=== PATIENT | male | born 1965 | race Caucasian/White ===

== ENCOUNTER 2017-01-23 18:48 | Emergency (ER) | payer MEDICAID ==
[~2017-01-23] VITALS: Ht 172.7 cm; Wt 86.4 kg
[~2017-01-23 18:48] MED LIST: ASPI-1093 PO; ATOR40TA28 PO; LOSA100T29 PO; METF500T4 PO; RISP1 PO; RISP2 PO; THIA100 PO; TRAZ-144 PO
[2017-01-23 19:00] VITALS: BP 174/108
[2017-01-23 19:06] LABS: GLUCOSE,POINT OF CARE 211 MG/DL (70-110)
[2017-01-23 19:27] LABS: ANION GAP 11 mmol/L (8-16); CALCIUM, TOTAL 9.3 mg/dL (8.8-10.5); CARBON DIOXIDE 28 mmol/L (22-29); CHLORIDE 98 mmol/L (98-107); CREATININE 0.92 mg/dL (0.60-1.30); GLOMERULAR FILTR. RATE CALC > 60 mL/min (>60); POTASSIUM 3.7 mmol/L (3.5-5.1); SODIUM SERUM 137 mmol/L (136-145); UREA NITROGEN, BLOOD 15 mg/dL (7-18)
[2017-01-23 19:31] LABS: BASOPHILS % (AUTO) 0.4 % (0.0-2.0); EOSINOPHILS % (AUTO) 0.4 % (1.0-6.0); HEMATOCRIT 46.5 % (41-53); HEMOGLOBIN 15.5 g/dL (13.5-17.5); LYMPHOCYTES # (AUTO) 2.8 K/uL (1.0-4.8); LYMPHOCYTES % (AUTO) 28.5 % (22.0-44.0); MEAN CORPUSCULAR HEMOGLOBIN 31.9 pg (26.0-34.0); MEAN CORPUSCULAR HGB CONC 33.3 G/dL (31.0-37.0); MEAN CORPUSCULAR VOLUME 96 fL (80-100); MONOCYTES # (AUTO) 0.8 K/uL (0.1-1.0); MONOCYTES % (AUTO) 7.7 % (2.0-9.0); NEUTROPHILS # (AUTO) 6.3 K/uL (1.8-7.7); PLATELET COUNT (AUTO) 292 K/uL (150-450); RED BLOOD CELL COUNT(AUTO) 4.86 MIL/uL (4.50-5.90); RED CELL DISTRIBUTION WIDTH 14.6 % (11.5-14.5)
[2017-01-23 19:33] LABS: ALANINE AMINOTRANSFERASE 32 U/L (12-78); ALBUMIN 3.8 g/dL (3.4-5.0); ASPARTATE AMINOTRANSFERASE 37 U/L (15-37); BILIRUBIN,TOTAL 0.5 mg/dL (0.1-1.0); TOTAL PROTEIN, SERUM 8.3 g/dL (6.4-8.2)
== END 2017-01-23 20:56 | disposition left against medical advice (07) ==
LOC: EMS 18:50
DX: F41.9 Anxiety disorder, unspecified (principal); F32.9 Major depressive disorder, single episode, unspecified; F20.9 Schizophrenia, unspecified; I10 Essential (primary) hypertension; F17.200 Nicotine dependence, unspecified, uncomplicated; Z53.21 Procedure and treatment not carried out due to patient leaving prior to being seen by health care provider
CPT/HCPCS: 36415; 80053; 80307; 82962; 85025; 93005; G0480

== ENCOUNTER 2017-12-02 14:31 | Emergency (ER) | payer MEDICAID, OTHER ==
[~2017-12-02] VITALS: Ht 177.8 cm; Wt 95.4 kg
[~2017-12-02 14:31] MED LIST changes: -ASPI-1093 PO; +ASPI-1182 PO
[2017-12-02] MEDS ORDERED: MAGNESIUM SULFATE 2 GM, MVI, ADULT NO.1 WITH VIT K 10 ML, THIAMINE HCL 100 MG, FOLIC AC... IV ONE ×5 (15:00)
[2017-12-02] MEDS ORDERED: ONDANSETRON HCL 4 MG/2 ML VIAL IVP ONE (15:00)
[2017-12-02] MEDS ORDERED: BENZONATATE 100 MG CAPSULE PO ONE (15:15)
[2017-12-02 15:26] LABS: BASOPHILS % (AUTO) 0.3 % (0.0-2.0); EOSINOPHILS % (AUTO) 0.4 % (1.0-6.0); HEMATOCRIT 44.1 % (41-53); HEMOGLOBIN 15.2 g/dL (13.5-17.5); LYMPHOCYTES # (AUTO) 1.9 K/uL (1.0-4.8); LYMPHOCYTES % (AUTO) 21.7 % (22.0-44.0); MEAN CORPUSCULAR HEMOGLOBIN 32.4 pg (26.0-34.0); MEAN CORPUSCULAR HGB CONC 34.5 G/dL (31.0-37.0); MEAN CORPUSCULAR VOLUME 94 fL (80-100); MONOCYTES # (AUTO) 0.7 K/uL (0.1-1.0); MONOCYTES % (AUTO) 7.6 % (2.0-9.0); NEUTROPHILS # (AUTO) 6.3 K/uL (1.8-7.7); PLATELET COUNT (AUTO) 221 K/uL (150-450); RED BLOOD CELL COUNT(AUTO) 4.69 MIL/uL (4.50-5.90); RED CELL DISTRIBUTION WIDTH 13.3 % (11.5-14.5)
[2017-12-02 16:06] LABS: ALANINE AMINOTRANSFERASE 53 U/L (12-78); ALBUMIN 3.5 g/dL (3.4-5.0); ALKALINE PHOSPHATASE 50 U/L (46-116); ANION GAP 11 mmol/L (8-16); ASPARTATE AMINOTRANSFERASE 34 U/L (15-37); BILIRUBIN,TOTAL 0.4 mg/dL (0.1-1.0); CALCIUM, TOTAL 8.5 mg/dL (8.8-10.5); CARBON DIOXIDE 27 mmol/L (22-29); CHLORIDE 92 mmol/L (98-107); GLOMERULAR FILTR. RATE CALC > 60 mL/min (>60); GLUCOSE,RANDOM 364 mg/dL (70-110); SODIUM SERUM 130 mmol/L (136-145); TOTAL PROTEIN, SERUM 7.2 g/dL (6.4-8.2); UREA NITROGEN, BLOOD 18 mg/dL (7-18)
[2017-12-02 16:40] LABS: POTASSIUM 2.9 mmol/L (3.5-5.1)
[2017-12-02] MEDS ORDERED: POTASSIUM CHLORIDE 20 MEQ ER TABLET PO ONE (16:45)
[2017-12-02 18:43] VITALS: BP 135/85
== END 2017-12-02 18:52 | disposition home or self-care (01) ==
LOC: EMS 14:34
DX: F10.239 Alcohol dependence with withdrawal, unspecified (principal); I10 Essential (primary) hypertension; E23.2 Diabetes insipidus; F20.9 Schizophrenia, unspecified; F32.9 Major depressive disorder, single episode, unspecified; Z79.82 Long term (current) use of aspirin; Y90.8 Blood alcohol level of 240 mg/100 ml or more
CPT/HCPCS: 36415; 80053; 85025; 96365; 96366; 96375; 99285; G0480; J2405; J3411; J3475; J3490 ×2; J7030

== ENCOUNTER 2025-01-19 03:13 | Inpatient (IN) | payer OTHER ==
[2025-01-19] VITALS (11 sets, daily range): BP systolic 96–115; BP diastolic 67–76; PULSE 60–80; RESP 24; TEMP 94.5–98.3; O2SAT 97–100
[~2025-01-19] VITALS: Ht 182.9 cm; Wt 95.6 kg
[~2025-01-19 03:13] MED LIST changes: -ASPI-1182 PO; +ASPI-1444 PO; -LOSA100T29 PO; +LOSA100T59 PO; +METF-1211 PO; -METF500T4 PO; -RISP1 PO; +RISP1TAB48 PO; -RISP2 PO; +RISP2TAB45 PO; -THIA100 PO; +THIAMINE HCL100 MG PO; -TRAZ-144 PO; +TRAZ-252 PO
[2025-01-19] MEDS ORDERED: IOHEXOL 350 MG/ML 100 ML VIAL ONE (03:46)
[2025-01-19] MEDS: PROPOFOL 1000 MG/ISO-OSM 100 ML IV PRN (04:44)
[2025-01-19 04:47] LABS: APPEARANCE,URINE CLEAR (CLEAR); BILIRUBIN,URINE NEGATIVE (NEGATIVE); COLOR,URINE YELLOW (YELLOW); GLUCOSE, URINE (UA) TRACE mg/dL (NEGATIVE); KETONES,URINE NEGATIVE (NEGATIVE); LEUKOCYTE ESTERASE ,URINE NEGATIVE (NEGATIVE); NITRATE,URINE NEGATIVE (NEGATIVE); OCCULT BLOOD,URINE TRACE (NEGATIVE); PROTEIN,URINE 300-600,SEE CONFIRM mg/dL (NEGATIVE); SPECIFIC GRAVITIY, URINE 1.017 (1.003-1.030); UROBILINOGEN,URINE <=1.0 mg/dL (<=1.0)
[2025-01-19 04:56] LABS: ABG BASE EXCESS -4.5 mmol/L (-2.0-3.0); ABG CARBOXYHEMOGLOBIN 1.1 % (0.5-1.5); ABG HCO3 21.4 mmol/L (21.0-28.0); ABG METHEMOGLOBIN 0.1 % (0.0-1.5); ABG OXYGEN CONTENT 21.1 mL/dL (15.0-23.0); ABG OXYGEN SATURATION 99.2 % (94.0-98.0); ABG PCO2 36 mmHg (32.0-48.0); ABG TOTAL HEMOGLOBIN 15.1 G/dL (13.5-17.5); PO2, ARTERIAL BG 160.6 mmHg (83.0-108.0); SOURCE, BLOOD GAS ARTERIAL; TEMPERATURE, FAHRENHEIT, BG 98.6 FAHREN (96.0-98.6)
[2025-01-19 04:57] LABS: BACTERIA,URINE None Seen /HPF (None Seen); RBC,URINE 0-2 /HPF (0-2); SQUAMOUS EPITHELIAL CELL,UR Few /LPF (None Seen); SULFOSALICYLIC ACID,URINE 4+ (Negative); WBC,URINE None Seen /HPF (0-5)
[2025-01-19 04:57] LABS: SITE, BLOOD GAS RT RADIAL
[2025-01-19 04:58] LABS: ALLEN TEST, BLOOD GAS Positive; O2 DEVICE,BLOOD GAS VENT (ROOM AIR); PEEP,BG 5 cm H2O; VT, ABG 430 ml
[2025-01-19] MEDS: PIPERACILLIN/TAZO 3.375 GM/D5W 50 ML IV ONE (05:10)
[2025-01-19 05:15] LABS: ALCOHOL, URINE DRUG SCREEN NEGATIVE (NEGATIVE); AMPHET/METH SCREEN,URINE NEGATIVE (NEGATIVE); BARBITURATE SCREEN, URINE NEGATIVE (NEGATIVE); BENZODIAZEPINES SCREEN,URINE NEGATIVE (NEGATIVE); CANNABINOID SCREEN,URINE NEGATIVE (NEGATIVE); COCAINE SCREEN,URINE NEGATIVE (NEGATIVE); METHADONE SCREEN, URINE NEGATIVE (NEGATIVE); OPIATE SCREEN,URINE NEGATIVE (NEGATIVE); PHENCYCLIDINE SCREEN,URINE NEGATIVE (NEGATIVE)
[2025-01-19] MEDS: KETAMINE HCL 500 MG in DEXTROSE 5%-WATER 490 ML IV PRN (05:25)
[2025-01-19] MEDS: VANCOMYCIN 1.5 GM/WATER(PEG) 300 ML IV ONE (05:25)
[2025-01-19 05:55] LABS: ANION GAP 8 mmol/L (8-16); BASOPHILS % (AUTO) 0.2 % (0.0-2.0); CALCIUM, TOTAL 8.5 mg/dL (8.8-10.5); CARBON DIOXIDE 22 mmol/L (22-29); CHLORIDE 107 mmol/L (98-107); CREATININE 1.51 mg/dL (0.60-1.30); EOSINOPHILS % (AUTO) 0 % (1.0-6.0); GLOMERULAR FILTR. RATE CALC 48 mL/min (>60); GLUCOSE,RANDOM 168 mg/dL (70-110); HEMATOCRIT 45.2 % (41-53); HEMOGLOBIN 14.1 g/dL (13.5-17.5); LYMPHOCYTES # (AUTO) 0.8 K/uL (1.0-4.8); LYMPHOCYTES % (AUTO) 6.6 % (22.0-44.0); MEAN CORPUSCULAR HEMOGLOBIN 28.5 pg (26.0-34.0); MEAN CORPUSCULAR HGB CONC 31.2 G/dL (31.0-37.0); MEAN CORPUSCULAR VOLUME 92 fL (80-100); MONOCYTES # (AUTO) 0.5 K/uL (0.1-1.0); MONOCYTES % (AUTO) 4.3 % (2.0-9.0); NEUTROPHILS # (AUTO) 11.3 K/uL (1.8-7.7); PLATELET COUNT (AUTO) 173 K/uL (150-450); POTASSIUM 4.7 mmol/L (3.5-5.1); RED BLOOD CELL COUNT(AUTO) 4.94 MIL/uL (4.50-5.90); RED CELL DISTRIBUTION WIDTH 23.8 % (11.5-14.5); SODIUM SERUM 137 mmol/L (136-145); UREA NITROGEN, BLOOD 33 mg/dL (7-18); WHITE BLOOD COUNT (AUTO) 12.7 K/uL (4.5-11.0)
[2025-01-19 05:57] LABS: NEUTROPHILS % (AUTO) 88.9 % (40.0-70.0)
[2025-01-19] MEDS ORDERED: ONDANSETRON HCL 4 MG/2 ML VIAL IVP PRN (06:00)
[2025-01-19 06:02] LABS: ALANINE AMINOTRANSFERASE 30 U/L (12-78); ALBUMIN 2.1 g/dL (3.4-5.0); ALKALINE PHOSPHATASE 100 U/L (46-116); ASPARTATE AMINOTRANSFERASE 34 U/L (15-37); BILIRUBIN,TOTAL 1.2 mg/dL (0.1-1.0); TOTAL PROTEIN, SERUM 6.6 g/dL (6.4-8.2)
[2025-01-19 06:04] LABS: TROPONIN I-HIGH SENSITIVITY 197 ng/L (<76)
[2025-01-19 06:26] LABS: RBC MORPHOLOGY COMMENT ABNORMAL RBC MORPH
[2025-01-19 07:01] LABS: PROTHROMBIN TIME 13.5 SEC (9.4-11.6)
[2025-01-19] MEDS: HEPARIN SODIUM,PORCINE 5,000 UNITS/ML VIAL SQ SCH (07:32)
[2025-01-19] MEDS ORDERED: DEXTROSE 50%-WATER 25 GM/50 ML SYRINGE IVP PRN (08:30)
[2025-01-19] MEDS: PANTOPRAZOLE SODIUM 40 MG/VIAL IVP SCH (08:40)
[2025-01-19 09:47] LABS: TROPONIN I-HIGH SENSITIVITY 279 ng/L (<76)
[2025-01-19 12:14] LABS: BILIRUBIN,URINE NEGATIVE (NEGATIVE); COLOR,URINE LIGHT YELLOW (YELLOW); GLUCOSE, URINE (UA) NEGATIVE (NEGATIVE); KETONES,URINE NEGATIVE (NEGATIVE); LEUKOCYTE ESTERASE ,URINE MODERATE (NEGATIVE); NITRATE,URINE NEGATIVE (NEGATIVE); OCCULT BLOOD,URINE MODERATE (NEGATIVE); PH,URINE 5.5 (5.0-8.0); PROTEIN,URINE 100-200,SEE CONFIRM mg/dL (NEGATIVE); SPECIFIC GRAVITIY, URINE 1.033 (1.003-1.030); UROBILINOGEN,URINE <=1.0 mg/dL (<=1.0)
[2025-01-19 12:15] LABS: APPEARANCE,URINE HAZY (CLEAR)
[2025-01-19 12:18] LABS: BACTERIA,URINE Moderate /HPF (None Seen)
[2025-01-19] MEDS: PIPERACILLIN/TAZO 3.375 GM/D5W 50 ML IV SCH (13:04)
[2025-01-19 15:49] LABS: TROPONIN I-HIGH SENSITIVITY 274 ng/L (<76)
[2025-01-19] MEDS: VANCOMYCIN HCL 1 GM/D5% WATER 200 ML IV SCH (20:59)
[2025-01-19] MEDS: CHLORHEXIDINE GLUCONATE 2% TOWELETTE [2'S/6'S] TP SCH (21:02)
[2025-01-19 21:03] LABS: TROPONIN I-HIGH SENSITIVITY 288 ng/L (<76)
[2025-01-19] MEDS ORDERED: FentaNYL CIT 1000MCG/0.9% NACL 100 ML IV PRN (21:15)
[2025-01-20] VITALS (15 sets, daily range): BP systolic 123–145; BP diastolic 70–103; PULSE 63–88; RESP 24; TEMP 98.1–99.1; O2SAT 95–100
[2025-01-20 06:19] LABS: CALCIUM, TOTAL 8.6 mg/dL (8.8-10.5); CREATININE 1.52 mg/dL (0.60-1.30); POTASSIUM 4.2 mmol/L (3.5-5.1)
[2025-01-20 07:25] LABS: BASOPHILS % (AUTO) 0.3 % (0.0-2.0); EOSINOPHILS % (AUTO) 0.1 % (1.0-6.0); LYMPHOCYTES # (AUTO) 1.5 K/uL (1.0-4.8); LYMPHOCYTES % (AUTO) 11.5 % (22.0-44.0); MEAN CORPUSCULAR HEMOGLOBIN 28.2 pg (26.0-34.0); MEAN CORPUSCULAR HGB CONC 31.9 G/dL (31.0-37.0); MEAN CORPUSCULAR VOLUME 88 fL (80-100); MONOCYTES # (AUTO) 1.2 K/uL (0.1-1.0); MONOCYTES % (AUTO) 9.7 % (2.0-9.0); NEUTROPHILS # (AUTO) 9.9 K/uL (1.8-7.7); NEUTROPHILS % (AUTO) 78.4 % (40.0-70.0); PLATELET COUNT (AUTO) 192 K/uL (150-450); RED BLOOD CELL COUNT(AUTO) 5.66 MIL/uL (4.50-5.90); RED CELL DISTRIBUTION WIDTH 23.9 % (11.5-14.5); WHITE BLOOD COUNT (AUTO) 12.7 K/uL (4.5-11.0)
[2025-01-20] MEDS: PROPOFOL 1000 MG/ISO-OSM 100 ML IV PRN (07:49)
[2025-01-20 08:07] LABS: RBC MORPHOLOGY COMMENT ABNORMAL RBC MORPH
[2025-01-20] MEDS ORDERED: DEXMEDETOMIDINE 400 MCG/NS 100 ML IV PRN (15:15)
[2025-01-21] VITALS (13 sets, daily range): BP systolic 114–138; BP diastolic 61–94; PULSE 70–103; RESP 24–27; TEMP 97.6–98.8; O2SAT 96–99
[2025-01-21 07:25] LABS: GLUCOMETER DEV NAME(LOC) ICU.S6; GLUCOSE,POINT OF CARE 149 MG/DL (70-110)
[2025-01-21 13:58] LABS: CREATININE 1.52 mg/dL (0.60-1.30); POTASSIUM 4.8 mmol/L (3.5-5.1)
[2025-01-21 16:45] LABS: HEMATOCRIT 53.2 % (41-53); HEMOGLOBIN 16.7 g/dL (13.5-17.5); MEAN CORPUSCULAR HEMOGLOBIN 27.4 pg (26.0-34.0); MEAN CORPUSCULAR HGB CONC 31.3 G/dL (31.0-37.0); MEAN CORPUSCULAR VOLUME 88 fL (80-100); PLATELET COUNT (AUTO) 235 K/uL (150-450); RED BLOOD CELL COUNT(AUTO) 6.07 MIL/uL (4.50-5.90); RED CELL DISTRIBUTION WIDTH 24.1 % (11.5-14.5)
[2025-01-21 16:47] LABS: ABG BASE EXCESS -2.5 mmol/L (-2.0-3.0); ABG CARBOXYHEMOGLOBIN 1.4 % (0.5-1.5); ABG HCO3 23.5 mmol/L (21.0-28.0); ABG METHEMOGLOBIN 0.2 % (0.0-1.5); ABG OXYGEN CONTENT 23.2 mL/dL (15.0-23.0); ABG OXYGEN SATURATION 96.8 % (94.0-98.0); ABG OXYHEMOGLOBIN 95.3 % (94.0-98.0); ABG PCO2 31 mmHg (32.0-48.0); ABG PH 7.455 (7.350-7.450); ABG TOTAL HEMOGLOBIN 17.3 G/dL (13.5-17.5); PO2, ARTERIAL BG 90.3 mmHg (83.0-108.0); SOURCE, BLOOD GAS ARTERIAL; TEMPERATURE, FAHRENHEIT, BG 98.6 FAHREN (96.0-98.6)
[2025-01-21 16:49] LABS: ABG A-A DIFF O2 86.9 mmHg (10-20.0); ALLEN TEST, BLOOD GAS Positive; SITE, BLOOD GAS RT RADIAL
[2025-01-21 16:50] LABS: O2 DEVICE,BLOOD GAS VENT (ROOM AIR); PEEP,BG 5 cm H2O; VT, ABG 430 ml
[2025-01-21 17:23] LABS: BAND NEUTROPHILS % (MANUAL) 3 % (0-5); LYMPHOCYTES % (MANUAL) 12 % (22-44); MONOCYTES % (MANUAL) 7 % (2-9); RBC MORPHOLOGY COMMENT ABNORMAL RBC MORPH; SEGMENTED NEUTROPHILS % 78 % (40-70); TOTAL CELLS COUNTED 100
[2025-01-21] MEDS: ETHYL ALCOHOL 62% ANTISEPTIC NASAL SANITIZER 0.6 ML AMPUL NASAL SCH (20:19)
[2025-01-22] VITALS (15 sets, daily range): BP systolic 118–132; BP diastolic 63–88; PULSE 70–100; RESP 24–29; TEMP 97.9–98.5; O2SAT 95–100
[2025-01-22] MEDS ORDERED: SODIUM CHLORIDE 0.9% 250 ML IV ONE (05:22)
[2025-01-22 06:26] LABS: BASOPHILS % (AUTO) 0.7 % (0.0-2.0); EOSINOPHILS % (AUTO) 0.6 % (1.0-6.0); HEMATOCRIT 51.2 % (41-53); HEMOGLOBIN 16.9 g/dL (13.5-17.5); LYMPHOCYTES # (AUTO) 1.3 K/uL (1.0-4.8); LYMPHOCYTES % (AUTO) 12.8 % (22.0-44.0); MEAN CORPUSCULAR HEMOGLOBIN 28.4 pg (26.0-34.0); MEAN CORPUSCULAR HGB CONC 32.9 G/dL (31.0-37.0); MEAN CORPUSCULAR VOLUME 86 fL (80-100); MONOCYTES % (AUTO) 9.7 % (2.0-9.0); NEUTROPHILS # (AUTO) 7.8 K/uL (1.8-7.7); NEUTROPHILS % (AUTO) 76.2 % (40.0-70.0); PLATELET COUNT (AUTO) 210 K/uL (150-450); RED BLOOD CELL COUNT(AUTO) 5.93 MIL/uL (4.50-5.90); RED CELL DISTRIBUTION WIDTH 24.2 % (11.5-14.5); WHITE BLOOD COUNT (AUTO) 10.3 K/uL (4.5-11.0)
[2025-01-22 06:48] LABS: CALCIUM, TOTAL 8.1 mg/dL (8.8-10.5); CREATININE 1.34 mg/dL (0.60-1.30); POTASSIUM 3.9 mmol/L (3.5-5.1); VANCOMYCIN,RANDOM 30.7 mcg/mL (25.0-50.0)
[2025-01-22] MEDS ORDERED: LIDOCAINE/PF 1% 5 ML VIAL ONE (09:49)
[2025-01-22 09:50] LABS: RBC MORPHOLOGY COMMENT ABNORMAL RBC MORPH
[2025-01-22 12:55] LABS: APPEARANCE,SPUN,BODY FLUID CLEAR (CLEAR); APPEARANCE,UNSPUN,BODY FLUID CLOUDY (CLEAR); BASOPHILS,BODY FLUID 0 %; COLOR,BODY FLUID YELLOW (LT YELLOW); EOSINOPHILS,BF (ANAL) 0 %; LYMPHOCYTES,BODY FLUID 92 %; MONOCYTES,BODY FLUID 0 %; NEUTROPHILS,BODY FLUID 8 %; SPECIMENTYPE,BODY FLUID PLEURAL; TOTAL VOLUME,BODY FLUID 70 mL; WBC, BODY FLUID 35 /cu. mm.
[2025-01-23] VITALS (13 sets, daily range): BP systolic 95–145; BP diastolic 48–99; PULSE 65–91; RESP 24–27; TEMP 97.5–97.9; O2SAT 95–100
[2025-01-23 06:52] LABS: BASOPHILS % (AUTO) 1.2 % (0.0-2.0); EOSINOPHILS % (AUTO) 0.7 % (1.0-6.0); HEMATOCRIT 51.7 % (41-53); HEMOGLOBIN 16.3 g/dL (13.5-17.5); LYMPHOCYTES % (AUTO) 13.8 % (22.0-44.0); MEAN CORPUSCULAR HEMOGLOBIN 27.8 pg (26.0-34.0); MEAN CORPUSCULAR HGB CONC 31.5 G/dL (31.0-37.0); MEAN CORPUSCULAR VOLUME 88 fL (80-100); MONOCYTES # (AUTO) 1.9 K/uL (0.1-1.0); MONOCYTES % (AUTO) 12.8 % (2.0-9.0); NEUTROPHILS # (AUTO) 10.4 K/uL (1.8-7.7); NEUTROPHILS % (AUTO) 71.5 % (40.0-70.0); PLATELET COUNT (AUTO) 254 K/uL (150-450); RED BLOOD CELL COUNT(AUTO) 5.87 MIL/uL (4.50-5.90); RED CELL DISTRIBUTION WIDTH 24.4 % (11.5-14.5); WHITE BLOOD COUNT (AUTO) 14.5 K/uL (4.5-11.0)
[2025-01-23 06:57] LABS: CALCIUM, TOTAL 8.1 mg/dL (8.8-10.5); CREATININE 1.35 mg/dL (0.60-1.30); MAGNESIUM 1.6 mg/dL (1.80-2.40); POTASSIUM 5.4 mmol/L (3.5-5.1)
[2025-01-23] MEDS ORDERED: SODIUM CHLORIDE 0.9% 250 ML IV ONE (06:59)
[2025-01-23] MEDS: VANCOMYCIN HCL 1 GM/D5% WATER 200 ML IV SCH (08:13)
[2025-01-23] MEDS: ATORVASTATIN CALCIUM 40 MG TABLET PO SCH (08:13)
[2025-01-23] MEDS: CLOPIDOGREL BISULFATE 75 MG TABLET PO SCH (08:13)
[2025-01-23] MEDS: ASPIRIN 81 MG CHEWABLE TABLET PO SCH (08:13)
[2025-01-23 08:42] LABS: RBC MORPHOLOGY COMMENT ABNORMAL RBC MORPH
[2025-01-23 09:39] LABS: CHOL/HDL RATIO 7.1 (4.2-7.3)
[2025-01-23 10:40] LABS: ABG BASE EXCESS -1.6 mmol/L (-2.0-3.0); ABG HCO3 23.9 mmol/L (21.0-28.0); ABG METHEMOGLOBIN 0.3 % (0.0-1.5); ABG OXYGEN CONTENT 22.1 mL/dL (15.0-23.0); ABG OXYGEN SATURATION 97.6 % (94.0-98.0); ABG OXYHEMOGLOBIN 96.3 % (94.0-98.0); ABG PCO2 32 mmHg (32.0-48.0); ABG PH 7.459 (7.350-7.450); ABG TOTAL HEMOGLOBIN 16.3 G/dL (13.5-17.5); PO2, ARTERIAL BG 90.8 mmHg (83.0-108.0); SOURCE, BLOOD GAS ARTERIAL; TEMPERATURE, FAHRENHEIT, BG 97.5 FAHREN (96.0-98.6)
[2025-01-23 10:41] LABS: ALLEN TEST, BLOOD GAS Positive; O2 DEVICE,BLOOD GAS VENTILATOR (ROOM AIR); PEEP,BG 5 cm H2O; PRESSURE SUPPORT, BG 8 cm H2O; SITE, BLOOD GAS RT RADIAL; SPONTANEOUS VT, BG 391 ml; VENT MODE, BG Press. Support Vent. (ROOM AIR)
[2025-01-23 14:07] LABS: TOTAL PROTEIN,BODY FLUID,REF 2.2 g/dL
[2025-01-24] VITALS (16 sets, daily range): BP systolic 95–159; BP diastolic 64–79; PULSE 62–83; RESP 14–28; TEMP 97.4–97.9; O2SAT 97–100
[2025-01-24 06:26] LABS: ANION GAP 9 mmol/L (8-16); CALCIUM, TOTAL 7.9 mg/dL (8.8-10.5); CARBON DIOXIDE 26 mmol/L (22-29); CHLORIDE 105 mmol/L (98-107); CREATININE 1.06 mg/dL (0.60-1.30); GLOMERULAR FILTR. RATE CALC > 60 mL/min (>60); GLUCOSE,RANDOM 207 mg/dL (70-110); POTASSIUM 3.3 mmol/L (3.5-5.1); SODIUM SERUM 140 mmol/L (136-145); UREA NITROGEN, BLOOD 26 mg/dL (7-18); VANCOMYCIN,RANDOM 20.1 mcg/mL (25.0-50.0)
[2025-01-24] MEDS ORDERED: POTASSIUM CHLORIDE 20 MEQ ER TABLET PO PRN (09:15)
[2025-01-24] MEDS: POTASSIUM CHL 10 MEQ/WATER 50 ML IV PRN (11:37)
[2025-01-24] MEDS ORDERED: SODIUM CHLORIDE 0.9% 250 ML IV ONE (15:23)
[2025-01-25] VITALS (13 sets, daily range): BP systolic 103–149; BP diastolic 57–98; PULSE 66–97; RESP 24–35; TEMP 97.3–98.7; O2SAT 97–100
[2025-01-25 06:51] LABS: ANION GAP 6 mmol/L (8-16); CALCIUM, TOTAL 8.3 mg/dL (8.8-10.5); CARBON DIOXIDE 27 mmol/L (22-29); CHLORIDE 106 mmol/L (98-107); CREATININE 0.95 mg/dL (0.60-1.30); EOSINOPHILS % (AUTO) 3.1 % (1.0-6.0); GLOMERULAR FILTR. RATE CALC > 60 mL/min (>60); GLUCOSE,RANDOM 227 mg/dL (70-110); HEMATOCRIT 47.7 % (41-53); HEMOGLOBIN 15.5 g/dL (13.5-17.5); LYMPHOCYTES # (AUTO) 1.2 K/uL (1.0-4.8); LYMPHOCYTES % (AUTO) 16.3 % (22.0-44.0); MEAN CORPUSCULAR HEMOGLOBIN 28.2 pg (26.0-34.0); MEAN CORPUSCULAR HGB CONC 32.6 G/dL (31.0-37.0); MEAN CORPUSCULAR VOLUME 87 fL (80-100); MONOCYTES # (AUTO) 0.6 K/uL (0.1-1.0); MONOCYTES % (AUTO) 8.9 % (2.0-9.0); NEUTROPHILS # (AUTO) 5.1 K/uL (1.8-7.7); NEUTROPHILS % (AUTO) 70.7 % (40.0-70.0); PLATELET COUNT (AUTO) 226 K/uL (150-450); POTASSIUM 3.6 mmol/L (3.5-5.1); SODIUM SERUM 139 mmol/L (136-145); UREA NITROGEN, BLOOD 23 mg/dL (7-18); WHITE BLOOD COUNT (AUTO) 7.3 K/uL (4.5-11.0)
[2025-01-25 06:55] LABS: RBC MORPHOLOGY COMMENT ABNORMAL RBC MORPH
[2025-01-25 10:53] LABS: LACTATE DEHYDROGENASE 281 U/L (85-227)
[2025-01-25] MEDS ORDERED: MAGNESIUM SULFATE 4 GM/WATER 100 ML IV PRN (11:00)
[2025-01-25 11:30] LABS: ALBUMIN 1.6 g/dL (3.4-5.0)
[2025-01-25 11:48] LABS: ABG BASE EXCESS 3.1 mmol/L (-2.0-3.0); ABG CARBOXYHEMOGLOBIN 1.2 % (0.5-1.5); ABG HCO3 26.7 mmol/L (21.0-28.0); ABG METHEMOGLOBIN 0.2 % (0.0-1.5); ABG OXYGEN CONTENT 21.1 mL/dL (15.0-23.0); ABG OXYGEN SATURATION 97.5 % (94.0-98.0); ABG OXYHEMOGLOBIN 96.1 % (94.0-98.0); ABG PCO2 44 mmHg (32.0-48.0); ABG PH 7.413 (7.350-7.450); ABG TOTAL HEMOGLOBIN 15.6 G/dL (13.5-17.5); PO2, ARTERIAL BG 93.4 mmHg (83.0-108.0); SOURCE, BLOOD GAS ARTERIAL; TEMPERATURE, FAHRENHEIT, BG 97.9 FAHREN (96.0-98.6)
[2025-01-25 11:49] LABS: ALLEN TEST, BLOOD GAS Positive; O2 DEVICE,BLOOD GAS VENTILATOR (ROOM AIR); PEEP,BG 5 cm H2O; PRESSURE SUPPORT, BG 5 cm H2O; SITE, BLOOD GAS RT RADIAL; SPONTANEOUS VT, BG 333 ml; VENT MODE, BG Press. Support Vent. (ROOM AIR)
[2025-01-26] VITALS (16 sets, daily range): BP systolic 124–147; BP diastolic 77–93; PULSE 16–105; RESP 18–36; TEMP 97.1–98.6; O2SAT 97–100
[2025-01-26 05:26] LABS: ANION GAP 8 mmol/L (8-16); CALCIUM, TOTAL 8.1 mg/dL (8.8-10.5); CARBON DIOXIDE 26 mmol/L (22-29); CHLORIDE 105 mmol/L (98-107); CREATININE 0.76 mg/dL (0.60-1.30); GLOMERULAR FILTR. RATE CALC > 60 mL/min (>60); GLUCOSE,RANDOM 245 mg/dL (70-110); POTASSIUM 3.4 mmol/L (3.5-5.1); SODIUM SERUM 139 mmol/L (136-145); UREA NITROGEN, BLOOD 20 mg/dL (7-18)
[2025-01-26 05:46] LABS: BASOPHILS % (AUTO) 0.8 % (0.0-2.0); EOSINOPHILS % (AUTO) 3.1 % (1.0-6.0); HEMATOCRIT 43.7 % (41-53); HEMOGLOBIN 14.1 g/dL (13.5-17.5); LYMPHOCYTES % (AUTO) 11.7 % (22.0-44.0); MEAN CORPUSCULAR HEMOGLOBIN 27.7 pg (26.0-34.0); MEAN CORPUSCULAR HGB CONC 32.2 G/dL (31.0-37.0); MEAN CORPUSCULAR VOLUME 86 fL (80-100); MONOCYTES # (AUTO) 0.7 K/uL (0.1-1.0); MONOCYTES % (AUTO) 7.8 % (2.0-9.0); NEUTROPHILS # (AUTO) 6.6 K/uL (1.8-7.7); NEUTROPHILS % (AUTO) 76.6 % (40.0-70.0); PLATELET COUNT (AUTO) 227 K/uL (150-450); RED BLOOD CELL COUNT(AUTO) 5.09 MIL/uL (4.50-5.90); RED CELL DISTRIBUTION WIDTH 23.9 % (11.5-14.5); WHITE BLOOD COUNT (AUTO) 8.7 K/uL (4.5-11.0)
[2025-01-26 07:38] LABS: RBC MORPHOLOGY COMMENT ABNORMAL RBC MORPH
[2025-01-26 10:39] LABS: ABG A-A DIFF O2 87.7 mmHg (10-20.0); ABG BASE EXCESS -2.2 mmol/L (-2.0-3.0); ABG CARBOXYHEMOGLOBIN 1.3 % (0.5-1.5); ABG HCO3 23.2 mmol/L (21.0-28.0); ABG METHEMOGLOBIN 0.2 % (0.0-1.5); ABG OXYGEN CONTENT 20.3 mL/dL (15.0-23.0); ABG OXYGEN SATURATION 96.9 % (94.0-98.0); ABG OXYHEMOGLOBIN 95.4 % (94.0-98.0); ABG PCO2 35 mmHg (32.0-48.0); ABG PH 7.425 (7.350-7.450); ABG TOTAL HEMOGLOBIN 15.1 G/dL (13.5-17.5); ALLEN TEST, BLOOD GAS Positive; O2 DEVICE,BLOOD GAS VENTILATOR (ROOM AIR); PO2, ARTERIAL BG 85.7 mmHg (83.0-108.0); SITE, BLOOD GAS LFT RADIAL; SOURCE, BLOOD GAS ARTERIAL; TEMPERATURE, FAHRENHEIT, BG 98.1 FAHREN (96.0-98.6); VENT MODE, BG CPAP (ROOM AIR)
[2025-01-26 10:40] LABS: CPAP, BG 5 cm H2O; PRESSURE SUPPORT, BG 8 cm H2O; SPONTANEOUS VT, BG 310 ml
[2025-01-26] MEDS: SCOPOLAMINE HYDROBROMIDE 1 MG/72 HOUR PATCH TD ONE (16:11)
[2025-01-27] VITALS (15 sets, daily range): BP systolic 101–153; BP diastolic 66–97; PULSE 70–118; RESP 24–38; TEMP 97.9–99.6; O2SAT 96–100
[2025-01-27] MEDS ORDERED: SODIUM CHLORIDE 0.9% 250 ML IV ONE (01:40)
[2025-01-27 07:18] LABS: BASOPHILS % (AUTO) 0.7 % (0.0-2.0); EOSINOPHILS % (AUTO) 2.8 % (1.0-6.0); HEMATOCRIT 49.2 % (41-53); HEMOGLOBIN 15.8 g/dL (13.5-17.5); LYMPHOCYTES # (AUTO) 2.5 K/uL (1.0-4.8); LYMPHOCYTES % (AUTO) 17.6 % (22.0-44.0); MEAN CORPUSCULAR HEMOGLOBIN 28.2 pg (26.0-34.0); MEAN CORPUSCULAR HGB CONC 32.1 G/dL (31.0-37.0); MEAN CORPUSCULAR VOLUME 88 fL (80-100); MONOCYTES # (AUTO) 1.4 K/uL (0.1-1.0); MONOCYTES % (AUTO) 9.4 % (2.0-9.0); NEUTROPHILS % (AUTO) 69.5 % (40.0-70.0); PLATELET COUNT (AUTO) 233 K/uL (150-450); WHITE BLOOD COUNT (AUTO) 14.5 K/uL (4.5-11.0)
[2025-01-27 07:26] LABS: ANION GAP 7 mmol/L (8-16); CALCIUM, TOTAL 8.7 mg/dL (8.8-10.5); CARBON DIOXIDE 28 mmol/L (22-29); CHLORIDE 104 mmol/L (98-107); CREATININE 0.91 mg/dL (0.60-1.30); GLOMERULAR FILTR. RATE CALC > 60 mL/min (>60); GLUCOSE,RANDOM 215 mg/dL (70-110); POTASSIUM 4.6 mmol/L (3.5-5.1); SODIUM SERUM 139 mmol/L (136-145); UREA NITROGEN, BLOOD 20 mg/dL (7-18); VANCOMYCIN,RANDOM 12.4 mcg/mL (25.0-50.0)
[2025-01-27 08:06] LABS: PLATELET MORPHOLOGY COMMENT GIANT PLTS PRESENT
[2025-01-27] MEDS: DEXMEDETOMIDINE 400 MCG/NS 100 ML IV PRN (09:10)
[2025-01-27] MEDS: ACETAMINOPHEN 325 MG TABLET PO PRN (09:37)
[2025-01-27 10:01] LABS: ABG CARBOXYHEMOGLOBIN 1.4 % (0.5-1.5); ABG HCO3 24.9 mmol/L (21.0-28.0); ABG METHEMOGLOBIN 0.2 % (0.0-1.5); ABG OXYGEN CONTENT 19.5 mL/dL (15.0-23.0); ABG OXYGEN SATURATION 95.9 % (94.0-98.0); ABG OXYHEMOGLOBIN 94.4 % (94.0-98.0); ABG PCO2 34 mmHg (32.0-48.0); ABG PH 7.459 (7.350-7.450); ABG TOTAL HEMOGLOBIN 14.7 G/dL (13.5-17.5); PO2, ARTERIAL BG 78.9 mmHg (83.0-108.0); SOURCE, BLOOD GAS ARTERIAL; TEMPERATURE, FAHRENHEIT, BG 98.3 FAHREN (96.0-98.6)
[2025-01-27 12:36] LABS: ABG A-A DIFF O2 94.8 mmHg (10-20.0); ALLEN TEST, BLOOD GAS Positive; CPAP, BG 5 cm H2O; O2 DEVICE,BLOOD GAS VENTILATOR (ROOM AIR); PRESSURE SUPPORT, BG 8 cm H2O; SITE, BLOOD GAS LFT RADIAL; VENT MODE, BG CPAP (ROOM AIR)
[2025-01-28] VITALS (13 sets, daily range): BP systolic 124–149; BP diastolic 76–102; PULSE 72–103; RESP 24–29; TEMP 97.5–98.8; O2SAT 96–100
[2025-01-28 06:24] LABS: BASOPHILS % (AUTO) 0.8 % (0.0-2.0); HEMATOCRIT 40.8 % (41-53); LYMPHOCYTES % (AUTO) 10.4 % (22.0-44.0); MEAN CORPUSCULAR HEMOGLOBIN 27.8 pg (26.0-34.0); MEAN CORPUSCULAR VOLUME 87 fL (80-100); MONOCYTES # (AUTO) 0.8 K/uL (0.1-1.0); MONOCYTES % (AUTO) 7.9 % (2.0-9.0); NEUTROPHILS # (AUTO) 7.4 K/uL (1.8-7.7); NEUTROPHILS % (AUTO) 76.9 % (40.0-70.0); PLATELET COUNT (AUTO) 229 K/uL (150-450); RED BLOOD CELL COUNT(AUTO) 4.68 MIL/uL (4.50-5.90); RED CELL DISTRIBUTION WIDTH 23.3 % (11.5-14.5); WHITE BLOOD COUNT (AUTO) 9.6 K/uL (4.5-11.0)
[2025-01-28 06:39] LABS: ANION GAP 9 mmol/L (8-16); CALCIUM, TOTAL 8.4 mg/dL (8.8-10.5); CARBON DIOXIDE 27 mmol/L (22-29); CHLORIDE 105 mmol/L (98-107); CREATININE 0.79 mg/dL (0.60-1.30); GLOMERULAR FILTR. RATE CALC > 60 mL/min (>60); GLUCOSE,RANDOM 220 mg/dL (70-110); POTASSIUM 3.5 mmol/L (3.5-5.1); SODIUM SERUM 141 mmol/L (136-145); UREA NITROGEN, BLOOD 22 mg/dL (7-18)
[2025-01-28] MEDS: VANCOMYCIN 1.25 GM/WATER(PEG) 250 ML IV SCH (07:30)
[2025-01-28 08:17] LABS: RBC MORPHOLOGY COMMENT ABNORMAL RBC MORPH
[2025-01-28 13:03] LABS: ANION GAP 9 mmol/L (8-16); CALCIUM, TOTAL 8.2 mg/dL (8.8-10.5); CARBON DIOXIDE 27 mmol/L (22-29); CHLORIDE 105 mmol/L (98-107); CREATININE 0.85 mg/dL (0.60-1.30); GLOMERULAR FILTR. RATE CALC > 60 mL/min (>60); GLUCOSE,RANDOM 254 mg/dL (70-110); POTASSIUM 3.9 mmol/L (3.5-5.1); SODIUM SERUM 141 mmol/L (136-145); UREA NITROGEN, BLOOD 21 mg/dL (7-18)
[2025-01-28] MEDS: ALBUMIN HUMAN 25%-50GM/200ML 200 ML IV SCH (13:10)
[2025-01-28] MEDS: MetroNIDAZOLE 500 MG TABLET PO SCH (17:05)
[2025-01-28] MEDS: LEVOFLOXACIN 750 MG/D5% WATER 150 ML IV SCH (17:16)
[2025-01-28] MEDS: TERBINAFINE HCL 1% 30 GM CREAM TP SCH (21:04)
[2025-01-29] VITALS (13 sets, daily range): BP systolic 129–146; BP diastolic 83–96; PULSE 82–107; RESP 24–36; TEMP 98.1–98.8; O2SAT 97–100
[2025-01-29 07:22] LABS: BASOPHILS % (AUTO) 0.6 % (0.0-2.0); EOSINOPHILS % (AUTO) 5.3 % (1.0-6.0); HEMATOCRIT 36.7 % (41-53); HEMOGLOBIN 11.6 g/dL (13.5-17.5); LYMPHOCYTES # (AUTO) 0.9 K/uL (1.0-4.8); LYMPHOCYTES % (AUTO) 10.3 % (22.0-44.0); MEAN CORPUSCULAR HEMOGLOBIN 27.9 pg (26.0-34.0); MEAN CORPUSCULAR HGB CONC 31.7 G/dL (31.0-37.0); MEAN CORPUSCULAR VOLUME 88 fL (80-100); MONOCYTES # (AUTO) 0.7 K/uL (0.1-1.0); MONOCYTES % (AUTO) 7.7 % (2.0-9.0); NEUTROPHILS # (AUTO) 6.5 K/uL (1.8-7.7); NEUTROPHILS % (AUTO) 76.1 % (40.0-70.0); PLATELET COUNT (AUTO) 216 K/uL (150-450); RED BLOOD CELL COUNT(AUTO) 4.17 MIL/uL (4.50-5.90); RED CELL DISTRIBUTION WIDTH 23.4 % (11.5-14.5); WHITE BLOOD COUNT (AUTO) 8.6 K/uL (4.5-11.0)
[2025-01-29 07:35] LABS: ANION GAP 9 mmol/L (8-16); CARBON DIOXIDE 28 mmol/L (22-29); CHLORIDE 104 mmol/L (98-107); GLUCOSE,RANDOM 208 mg/dL (70-110); POTASSIUM 3.5 mmol/L (3.5-5.1); SODIUM SERUM 141 mmol/L (136-145); UREA NITROGEN, BLOOD 23 mg/dL (7-18)
[2025-01-29 07:36] LABS: ALANINE AMINOTRANSFERASE 16 U/L (12-78); ALKALINE PHOSPHATASE 52 U/L (46-116); ASPARTATE AMINOTRANSFERASE 20 U/L (15-37); CALCIUM, TOTAL 8.7 mg/dL (8.8-10.5); GLOMERULAR FILTR. RATE CALC > 60 mL/min (>60); TOTAL PROTEIN, SERUM 6.5 g/dL (6.4-8.2)
[2025-01-29] MEDS: MAGNESIUM OXIDE 400 MG TABLET PO PRN (09:07)
[2025-01-29 09:17] LABS: RBC MORPHOLOGY COMMENT ABNORMAL RBC MORPH
[2025-01-29] MEDS: SODIUM,POTASSIUM PHOSPHATES POWDER PACKET PO ONE (10:35)
[2025-01-29 12:20] LABS: ABG BASE EXCESS -0.8 mmol/L (-2.0-3.0); ABG CARBOXYHEMOGLOBIN 1.1 % (0.5-1.5); ABG METHEMOGLOBIN 0.3 % (0.0-1.5); ABG OXYGEN CONTENT 17.7 mL/dL (15.0-23.0); ABG OXYGEN SATURATION 96.8 % (94.0-98.0); ABG OXYHEMOGLOBIN 95.4 % (94.0-98.0); ABG PCO2 39 mmHg (32.0-48.0); ABG PH 7.409 (7.350-7.450); ABG TOTAL HEMOGLOBIN 13.1 G/dL (13.5-17.5); PO2, ARTERIAL BG 90.4 mmHg (83.0-108.0); SOURCE, BLOOD GAS ARTERIAL; TEMPERATURE, FAHRENHEIT, BG 98.7 FAHREN (96.0-98.6)
[2025-01-29 12:21] LABS: ALLEN TEST, BLOOD GAS Positive; SITE, BLOOD GAS RT RADIAL
[2025-01-29 12:23] LABS: O2 DEVICE,BLOOD GAS VENTILATOR (ROOM AIR); VENT MODE, BG Press. Support Vent. (ROOM AIR)
[2025-01-29 12:24] LABS: PEEP,BG 5 cm H2O; PRESSURE SUPPORT, BG 5 cm H2O; SPONTANEOUS VT, BG 370 ml
[2025-01-29] MEDS: ERTAPENEM SODIUM 1 GM in SODIUM CHLORIDE 0.9% 50 ML IV SCH (14:16)
[2025-01-29] MEDS: POTASSIUM PHOS,M-BASIC-D-BASIC 30 MMOL in DEXTROSE 5%-WATER 250 ML IV ONE (21:40)
[2025-01-30] VITALS (13 sets, daily range): BP systolic 111–144; BP diastolic 70–96; PULSE 60–85; RESP 24; TEMP 96.9–98; O2SAT 97–99
[2025-01-30] MEDS ORDERED: SODIUM CHLORIDE 0.9% 250 ML IV ONE (00:56)
[2025-01-30 04:44] LABS: BASOPHILS % (AUTO) 0.6 % (0.0-2.0); EOSINOPHILS % (AUTO) 3.5 % (1.0-6.0); HEMATOCRIT 36.2 % (41-53); HEMOGLOBIN 11.7 g/dL (13.5-17.5); MEAN CORPUSCULAR HEMOGLOBIN 28.3 pg (26.0-34.0); MEAN CORPUSCULAR HGB CONC 32.3 G/dL (31.0-37.0); MEAN CORPUSCULAR VOLUME 88 fL (80-100); MONOCYTES # (AUTO) 0.8 K/uL (0.1-1.0); MONOCYTES % (AUTO) 10.2 % (2.0-9.0); NEUTROPHILS # (AUTO) 6.1 K/uL (1.8-7.7); NEUTROPHILS % (AUTO) 73.7 % (40.0-70.0); PLATELET COUNT (AUTO) 215 K/uL (150-450); RED BLOOD CELL COUNT(AUTO) 4.13 MIL/uL (4.50-5.90); RED CELL DISTRIBUTION WIDTH 23.4 % (11.5-14.5); WHITE BLOOD COUNT (AUTO) 8.3 K/uL (4.5-11.0)
[2025-01-30 05:03] LABS: ANION GAP 10 mmol/L (8-16); CALCIUM, TOTAL 8.9 mg/dL (8.8-10.5); CARBON DIOXIDE 26 mmol/L (22-29); CHLORIDE 101 mmol/L (98-107); CREATININE 0.83 mg/dL (0.60-1.30); GLOMERULAR FILTR. RATE CALC > 60 mL/min (>60); GLUCOSE,RANDOM 213 mg/dL (70-110); PHOSPHORUS 2.9 mg/dL (2.5-4.9); POTASSIUM 3.5 mmol/L (3.5-5.1); SODIUM SERUM 137 mmol/L (136-145); UREA NITROGEN, BLOOD 22 mg/dL (7-18)
[2025-01-30 05:31] LABS: RBC MORPHOLOGY COMMENT ABNORMAL RBC MORPH
[2025-01-30] MEDS: MAGNESIUM SULFATE 2 GM/WATER 50 ML IV PRN (08:37)
[2025-01-30] MEDS: ROCURONIUM BROMIDE 10 MG/ML 5 ML VIAL IVP ONE (13:39)
[2025-01-30] MEDS: FentaNYL CIT 1000MCG/0.9% NACL 100 ML IV PRN (13:39)
[2025-01-30] MEDS: SILVER NITRATE APPLICATOR 1 EA STICK TP ONE (16:04)
[2025-01-31] VITALS (14 sets, daily range): BP systolic 115–139; BP diastolic 76–89; PULSE 60–78; RESP 24; TEMP 97–99.5; O2SAT 98–100
[2025-01-31 01:36] LABS: C.DIFF GDH ANTIGEN, Stool Negative (Negative); C.DIFF TOXINS A&B, Stool Negative (Negative)
[2025-01-31 05:43] LABS: BASOPHILS % (AUTO) 1.2 % (0.0-2.0); EOSINOPHILS % (AUTO) 4.4 % (1.0-6.0); HEMATOCRIT 36.6 % (41-53); HEMOGLOBIN 11.8 g/dL (13.5-17.5); LYMPHOCYTES # (AUTO) 1.2 K/uL (1.0-4.8); LYMPHOCYTES % (AUTO) 16.1 % (22.0-44.0); MEAN CORPUSCULAR HEMOGLOBIN 28.2 pg (26.0-34.0); MEAN CORPUSCULAR HGB CONC 32.3 G/dL (31.0-37.0); MEAN CORPUSCULAR VOLUME 87 fL (80-100); MONOCYTES # (AUTO) 0.6 K/uL (0.1-1.0); MONOCYTES % (AUTO) 8.2 % (2.0-9.0); NEUTROPHILS # (AUTO) 5.5 K/uL (1.8-7.7); NEUTROPHILS % (AUTO) 70.1 % (40.0-70.0); PLATELET COUNT (AUTO) 224 K/uL (150-450); RED BLOOD CELL COUNT(AUTO) 4.19 MIL/uL (4.50-5.90); RED CELL DISTRIBUTION WIDTH 23.7 % (11.5-14.5); WHITE BLOOD COUNT (AUTO) 7.8 K/uL (4.5-11.0)
[2025-01-31 06:00] LABS: ANION GAP 8 mmol/L (8-16); CARBON DIOXIDE 29 mmol/L (22-29); CHLORIDE 106 mmol/L (98-107); CREATININE 0.82 mg/dL (0.60-1.30); GLOMERULAR FILTR. RATE CALC > 60 mL/min (>60); GLUCOSE,RANDOM 125 mg/dL (70-110); PHOSPHORUS 2.1 mg/dL (2.5-4.9); POTASSIUM 3.5 mmol/L (3.5-5.1); SODIUM SERUM 143 mmol/L (136-145); UREA NITROGEN, BLOOD 21 mg/dL (7-18); VANCOMYCIN,RANDOM 16.2 mcg/mL (25.0-50.0)
[2025-01-31 06:12] LABS: RBC MORPHOLOGY COMMENT ABNORMAL RBC MORPH
[2025-01-31 19:52] LABS: GLUCOMETER DEV NAME(LOC) ICU.S6; GLUCOSE,POINT OF CARE 122 MG/DL (70-110)
[2025-01-31 20:09] LABS: PHOSPHORUS 2.4 mg/dL (2.5-4.9)
[2025-02-01] VITALS (14 sets, daily range): BP systolic 125–140; BP diastolic 81–90; PULSE 68–85; RESP 4–24; TEMP 98.9–99.6; O2SAT 95–100
[2025-02-01 05:31] LABS: BASOPHILS % (AUTO) 0.8 % (0.0-2.0); HEMATOCRIT 34.6 % (41-53); HEMOGLOBIN 11.3 g/dL (13.5-17.5); LYMPHOCYTES # (AUTO) 1.1 K/uL (1.0-4.8); LYMPHOCYTES % (AUTO) 14.2 % (22.0-44.0); MEAN CORPUSCULAR HEMOGLOBIN 28.4 pg (26.0-34.0); MEAN CORPUSCULAR HGB CONC 32.7 G/dL (31.0-37.0); MEAN CORPUSCULAR VOLUME 87 fL (80-100); MONOCYTES # (AUTO) 0.7 K/uL (0.1-1.0); MONOCYTES % (AUTO) 9.1 % (2.0-9.0); NEUTROPHILS # (AUTO) 5.7 K/uL (1.8-7.7); NEUTROPHILS % (AUTO) 72.9 % (40.0-70.0); PLATELET COUNT (AUTO) 209 K/uL (150-450); RED BLOOD CELL COUNT(AUTO) 3.98 MIL/uL (4.50-5.90); RED CELL DISTRIBUTION WIDTH 23.6 % (11.5-14.5); WHITE BLOOD COUNT (AUTO) 7.8 K/uL (4.5-11.0)
[2025-02-01 05:42] LABS: ANION GAP 10 mmol/L (8-16); CALCIUM, TOTAL 9.1 mg/dL (8.8-10.5); CARBON DIOXIDE 26 mmol/L (22-29); CHLORIDE 106 mmol/L (98-107); CREATININE 0.92 mg/dL (0.60-1.30); GLOMERULAR FILTR. RATE CALC > 60 mL/min (>60); GLUCOSE,RANDOM 136 mg/dL (70-110); POTASSIUM 3.5 mmol/L (3.5-5.1); SODIUM SERUM 142 mmol/L (136-145); UREA NITROGEN, BLOOD 25 mg/dL (7-18)
[2025-02-01 06:12] LABS: RBC MORPHOLOGY COMMENT ABNORMAL RBC MORPH
[2025-02-01] MEDS: SOD PHOS DI, MONO/K PHOS MONO 250 MG TABLET NG ONE (14:56)
[2025-02-01] MEDS ORDERED: SODIUM CHLORIDE 0.9% 250 ML IV ONE (15:06)
[2025-02-02] VITALS (15 sets, daily range): BP systolic 125–159; BP diastolic 79–107; PULSE 69–116; RESP 20–38; TEMP 98.8–100.6; O2SAT 95–100
[2025-02-02 05:23] LABS: BASOPHILS % (AUTO) 0.8 % (0.0-2.0); EOSINOPHILS % (AUTO) 2.9 % (1.0-6.0); HEMATOCRIT 37.3 % (41-53); HEMOGLOBIN 11.9 g/dL (13.5-17.5); LYMPHOCYTES # (AUTO) 1.1 K/uL (1.0-4.8); LYMPHOCYTES % (AUTO) 13.4 % (22.0-44.0); MEAN CORPUSCULAR HEMOGLOBIN 28.1 pg (26.0-34.0); MEAN CORPUSCULAR HGB CONC 31.8 G/dL (31.0-37.0); MEAN CORPUSCULAR VOLUME 88 fL (80-100); MONOCYTES # (AUTO) 0.7 K/uL (0.1-1.0); MONOCYTES % (AUTO) 8.1 % (2.0-9.0); NEUTROPHILS # (AUTO) 6.4 K/uL (1.8-7.7); NEUTROPHILS % (AUTO) 74.8 % (40.0-70.0); PLATELET COUNT (AUTO) 216 K/uL (150-450); RED BLOOD CELL COUNT(AUTO) 4.22 MIL/uL (4.50-5.90); RED CELL DISTRIBUTION WIDTH 24.1 % (11.5-14.5); WHITE BLOOD COUNT (AUTO) 8.5 K/uL (4.5-11.0)
[2025-02-02 05:34] LABS: ANION GAP 12 mmol/L (8-16); CALCIUM, TOTAL 9.3 mg/dL (8.8-10.5); CARBON DIOXIDE 26 mmol/L (22-29); CHLORIDE 106 mmol/L (98-107); CREATININE 1.01 mg/dL (0.60-1.30); GLOMERULAR FILTR. RATE CALC > 60 mL/min (>60); GLUCOSE,RANDOM 145 mg/dL (70-110); POTASSIUM 3.5 mmol/L (3.5-5.1); RBC MORPHOLOGY COMMENT ABNORMAL RBC MORPH; SODIUM SERUM 144 mmol/L (136-145); UREA NITROGEN, BLOOD 28 mg/dL (7-18)
[2025-02-02 05:37] LABS: MAGNESIUM 1.9 mg/dL (1.80-2.40); PHOSPHORUS 2.8 mg/dL (2.5-4.9)
[2025-02-02] MEDS: POTASSIUM CHLORIDE 10% 40 MEQ/30 ML LIQUID UDCUP NG PRN (11:31)
[2025-02-02] MEDS: LORazepam 2 MG/ML VIAL IVP PRN ×2 (16:47→20:47)
[2025-02-02] MEDS: FentaNYL CITRATE PF 100 MCG/2 ML VIAL IVP ONE (18:18)
[2025-02-02] MEDS: IPRATROPIUM BROMIDE 0.5 MG/2.5 ML NEB SOLUTION NEB PRN (20:46)
[2025-02-02] MEDS: ALBUTEROL SULFATE 2.5 MG/0.5 ML NEB SOLUTION NEB PRN (20:46)
[2025-02-03] VITALS (15 sets, daily range): BP systolic 116–135; BP diastolic 73–103; PULSE 60–107; RESP 24–38; TEMP 97.2–99.3; O2SAT 96–99
[2025-02-03 05:48] LABS: BASOPHILS % (AUTO) 0.7 % (0.0-2.0); EOSINOPHILS % (AUTO) 2.4 % (1.0-6.0); HEMATOCRIT 34.9 % (41-53); HEMOGLOBIN 11.2 g/dL (13.5-17.5); LYMPHOCYTES # (AUTO) 1.4 K/uL (1.0-4.8); LYMPHOCYTES % (AUTO) 13.6 % (22.0-44.0); MEAN CORPUSCULAR HEMOGLOBIN 28.2 pg (26.0-34.0); MEAN CORPUSCULAR HGB CONC 32.2 G/dL (31.0-37.0); MEAN CORPUSCULAR VOLUME 88 fL (80-100); MONOCYTES # (AUTO) 0.8 K/uL (0.1-1.0); MONOCYTES % (AUTO) 8.2 % (2.0-9.0); NEUTROPHILS # (AUTO) 7.5 K/uL (1.8-7.7); NEUTROPHILS % (AUTO) 75.1 % (40.0-70.0); PLATELET COUNT (AUTO) 246 K/uL (150-450); RED BLOOD CELL COUNT(AUTO) 3.98 MIL/uL (4.50-5.90); RED CELL DISTRIBUTION WIDTH 23.1 % (11.5-14.5)
[2025-02-03 05:58] LABS: RBC MORPHOLOGY COMMENT ABNORMAL RBC MORPH
[2025-02-03 07:55] LABS: ANION GAP 15 mmol/L (8-16); CALCIUM, TOTAL 9.3 mg/dL (8.8-10.5); CARBON DIOXIDE 24 mmol/L (22-29); CHLORIDE 106 mmol/L (98-107); CREATININE 1.04 mg/dL (0.60-1.30); GLOMERULAR FILTR. RATE CALC > 60 mL/min (>60); GLUCOSE,RANDOM 238 mg/dL (70-110); POTASSIUM 3.7 mmol/L (3.5-5.1); SODIUM SERUM 145 mmol/L (136-145); UREA NITROGEN, BLOOD 40 mg/dL (7-18); VANCOMYCIN,RANDOM 16.1 mcg/mL (25.0-50.0)
[2025-02-03] MEDS ORDERED: SODIUM CHLORIDE 0.9% 250 ML IV ONE (20:31)
[2025-02-04] VITALS (14 sets, daily range): BP systolic 137–148; BP diastolic 78–97; PULSE 61–84; RESP 24–35; TEMP 99.5–100.1; O2SAT 97–99
[2025-02-04 10:16] LABS: BASOPHILS % (AUTO) 1.4 % (0.0-2.0); EOSINOPHILS % (AUTO) 2.9 % (1.0-6.0); HEMATOCRIT 37.4 % (41-53); HEMOGLOBIN 11.8 g/dL (13.5-17.5); LYMPHOCYTES % (AUTO) 9.8 % (22.0-44.0); MEAN CORPUSCULAR HEMOGLOBIN 27.9 pg (26.0-34.0); MEAN CORPUSCULAR HGB CONC 31.6 G/dL (31.0-37.0); MEAN CORPUSCULAR VOLUME 88 fL (80-100); MONOCYTES % (AUTO) 9.1 % (2.0-9.0); NEUTROPHILS % (AUTO) 76.8 % (40.0-70.0); PLATELET COUNT (AUTO) 199 K/uL (150-450); RED BLOOD CELL COUNT(AUTO) 4.24 MIL/uL (4.50-5.90); RED CELL DISTRIBUTION WIDTH 23.9 % (11.5-14.5); WHITE BLOOD COUNT (AUTO) 10.4 K/uL (4.5-11.0)
[2025-02-04 10:26] LABS: ANION GAP 12 mmol/L (8-16); CALCIUM, TOTAL 9.6 mg/dL (8.8-10.5); CARBON DIOXIDE 23 mmol/L (22-29); CHLORIDE 105 mmol/L (98-107); CREATININE 1.21 mg/dL (0.60-1.30); GLOMERULAR FILTR. RATE CALC > 60 mL/min (>60); GLUCOSE,RANDOM 320 mg/dL (70-110); POTASSIUM 4.3 mmol/L (3.5-5.1); RBC MORPHOLOGY COMMENT ABNORMAL RBC MORPH; SODIUM SERUM 140 mmol/L (136-145); UREA NITROGEN, BLOOD 56 mg/dL (7-18)
[2025-02-04] MEDS ORDERED: SODIUM CHLORIDE 0.9% 250 ML IV ONE (19:39)
[2025-02-05] VITALS (14 sets, daily range): BP systolic 137–145; BP diastolic 88–106; PULSE 60–69; RESP 24–30; TEMP 98.9–100.7; O2SAT 97–99
[2025-02-05 06:12] LABS: BASOPHILS % (AUTO) 1.2 % (0.0-2.0); EOSINOPHILS % (AUTO) 2.1 % (1.0-6.0); HEMATOCRIT 36.1 % (41-53); HEMOGLOBIN 11.6 g/dL (13.5-17.5); LYMPHOCYTES # (AUTO) 1.2 K/uL (1.0-4.8); LYMPHOCYTES % (AUTO) 12.1 % (22.0-44.0); MEAN CORPUSCULAR HEMOGLOBIN 28.5 pg (26.0-34.0); MEAN CORPUSCULAR VOLUME 89 fL (80-100); MONOCYTES # (AUTO) 0.9 K/uL (0.1-1.0); MONOCYTES % (AUTO) 9.4 % (2.0-9.0); NEUTROPHILS # (AUTO) 7.4 K/uL (1.8-7.7); NEUTROPHILS % (AUTO) 75.2 % (40.0-70.0); PLATELET COUNT (AUTO) 188 K/uL (150-450); RED BLOOD CELL COUNT(AUTO) 4.06 MIL/uL (4.50-5.90); RED CELL DISTRIBUTION WIDTH 23.4 % (11.5-14.5); WHITE BLOOD COUNT (AUTO) 9.9 K/uL (4.5-11.0)
[2025-02-05 06:31] LABS: POTASSIUM 5.1 mmol/L (3.5-5.1)
[2025-02-05 06:32] LABS: CALCIUM, TOTAL 9.7 mg/dL (8.8-10.5); CREATININE 1.37 mg/dL (0.60-1.30)
[2025-02-05] MEDS ORDERED: DEXTROSE 50%-WATER 25 GM/50 ML SYRINGE IVP PRN (13:30)
[2025-02-05 19:26] LABS: GLUCOMETER DEV NAME(LOC) ICU.S6; GLUCOSE,POINT OF CARE 290 MG/DL (70-110)
[2025-02-05] MEDS: BETAMETHASONE DIP 0.05% 15 GM CREAM TP SCH (20:54)
[2025-02-06] VITALS (14 sets, daily range): BP systolic 122–151; BP diastolic 41–95; PULSE 60–67; RESP 24–28; TEMP 99.4–100.2; O2SAT 94–100
[2025-02-06 02:17] LABS: GLUCOMETER DEV NAME(LOC) ICU.S6; GLUCOSE,POINT OF CARE 278 MG/DL (70-110)
[2025-02-06 06:00] LABS: EOSINOPHILS % (AUTO) 1.5 % (1.0-6.0); HEMATOCRIT 34.8 % (41-53); HEMOGLOBIN 11.1 g/dL (13.5-17.5); LYMPHOCYTES # (AUTO) 1.4 K/uL (1.0-4.8); MEAN CORPUSCULAR HEMOGLOBIN 28.5 pg (26.0-34.0); MEAN CORPUSCULAR HGB CONC 31.9 G/dL (31.0-37.0); MEAN CORPUSCULAR VOLUME 89 fL (80-100); MONOCYTES # (AUTO) 0.8 K/uL (0.1-1.0); MONOCYTES % (AUTO) 8.3 % (2.0-9.0); NEUTROPHILS # (AUTO) 7.7 K/uL (1.8-7.7); NEUTROPHILS % (AUTO) 75.2 % (40.0-70.0); PLATELET COUNT (AUTO) 165 K/uL (150-450); RED CELL DISTRIBUTION WIDTH 23.4 % (11.5-14.5); WHITE BLOOD COUNT (AUTO) 10.2 K/uL (4.5-11.0)
[2025-02-06 07:13] LABS: ALBUMIN 5.8 g/dL (3.4-5.0); BILIRUBIN,TOTAL 2.3 mg/dL (0.1-1.0); CREATININE 1.77 mg/dL (0.60-1.30); POTASSIUM 3.9 mmol/L (3.5-5.1); TOTAL PROTEIN, SERUM 7.8 g/dL (6.4-8.2)
[2025-02-06 07:14] LABS: RBC MORPHOLOGY COMMENT ABNORMAL RBC MORPH
[2025-02-06 11:25] LABS: GLUCOMETER DEV NAME(LOC) ICUN.5; GLUCOSE,POINT OF CARE 286 MG/DL (70-110)
[2025-02-06] MEDS ORDERED: SODIUM CHLORIDE 0.9% 250 ML IV ONE (14:09)
[2025-02-06 18:20] LABS: GLUCOMETER DEV NAME(LOC) ICUN.5; GLUCOSE,POINT OF CARE 294 MG/DL (70-110)
[2025-02-06 19:01] LABS: GLUCOMETER DEV NAME(LOC) ICUN.5; GLUCOSE,POINT OF CARE 325 MG/DL (70-110)
[2025-02-06 23:16] LABS: GLUCOMETER DEV NAME(LOC) ICU.S6; GLUCOSE,POINT OF CARE 211 MG/DL (70-110)
[2025-02-07] VITALS (15 sets, daily range): BP systolic 120–137; BP diastolic 76–85; PULSE 60–62; RESP 26–37; TEMP 98.1–99.7; O2SAT 97–100
[2025-02-07] MEDS ORDERED: DEXTROSE 50%-WATER 25 GM/50 ML SYRINGE IVP PRN (01:00)
[2025-02-07 01:05] LABS: GLUCOMETER DEV NAME(LOC) ICU.S6; GLUCOSE,POINT OF CARE 165 MG/DL (70-110)
[2025-02-07] MEDS: INSULIN LISPRO 100 UNITS/ML SQ PRN (01:43)
[2025-02-07 05:37] LABS: BASOPHILS % (AUTO) 1.3 % (0.0-2.0); EOSINOPHILS % (AUTO) 1.1 % (1.0-6.0); HEMATOCRIT 35.9 % (41-53); HEMOGLOBIN 11.3 g/dL (13.5-17.5); LYMPHOCYTES # (AUTO) 1.4 K/uL (1.0-4.8); LYMPHOCYTES % (AUTO) 12.9 % (22.0-44.0); MEAN CORPUSCULAR HEMOGLOBIN 28.3 pg (26.0-34.0); MEAN CORPUSCULAR HGB CONC 31.5 G/dL (31.0-37.0); MEAN CORPUSCULAR VOLUME 90 fL (80-100); MONOCYTES # (AUTO) 0.8 K/uL (0.1-1.0); MONOCYTES % (AUTO) 7.9 % (2.0-9.0); NEUTROPHILS # (AUTO) 8.2 K/uL (1.8-7.7); NEUTROPHILS % (AUTO) 76.8 % (40.0-70.0); PLATELET COUNT (AUTO) 172 K/uL (150-450); RED BLOOD CELL COUNT(AUTO) 3.99 MIL/uL (4.50-5.90); WHITE BLOOD COUNT (AUTO) 10.6 K/uL (4.5-11.0)
[2025-02-07 05:53] LABS: BILIRUBIN,TOTAL 1.8 mg/dL (0.1-1.0); CALCIUM, TOTAL 10.1 mg/dL (8.8-10.5); CREATININE 1.81 mg/dL (0.60-1.30); POTASSIUM 3.9 mmol/L (3.5-5.1); TOTAL PROTEIN, SERUM 7.9 g/dL (6.4-8.2)
[2025-02-07 07:18] LABS: RBC MORPHOLOGY COMMENT ABNORMAL RBC MORPH
[2025-02-07 09:15] LABS: GLUCOMETER DEV NAME(LOC) ICUN.5; GLUCOSE,POINT OF CARE 226 MG/DL (70-110)
[2025-02-07 17:45] LABS: GLUCOMETER DEV NAME(LOC) ICUN.5; GLUCOSE,POINT OF CARE 162 MG/DL (70-110)
[2025-02-07] MEDS: LORazepam 1 MG TABLET PO SCH (20:23)
[2025-02-07] MEDS ORDERED: QUEtiapine FUMARATE 25 MG TABLET PO SCH (21:00)
[2025-02-08] VITALS (15 sets, daily range): BP systolic 135–170; BP diastolic 78–103; PULSE 60–114; RESP 25–33; TEMP 97.4–100.6; O2SAT 93–99
[2025-02-08 00:20] LABS: GLUCOMETER DEV NAME(LOC) ICU.S6; GLUCOSE,POINT OF CARE 186 MG/DL (70-110)
[2025-02-08 00:20] LABS: GLUCOMETER DEV NAME(LOC) ICU.S6; GLUCOSE,POINT OF CARE 226 MG/DL (70-110)
[2025-02-08 06:22] LABS: BASOPHILS % (AUTO) 2.1 % (0.0-2.0); EOSINOPHILS % (AUTO) 2.6 % (1.0-6.0); HEMATOCRIT 38.5 % (41-53); LYMPHOCYTES # (AUTO) 1.4 K/uL (1.0-4.8); MEAN CORPUSCULAR HEMOGLOBIN 28.2 pg (26.0-34.0); MEAN CORPUSCULAR HGB CONC 31.1 G/dL (31.0-37.0); MEAN CORPUSCULAR VOLUME 91 fL (80-100); MONOCYTES # (AUTO) 1.4 K/uL (0.1-1.0); MONOCYTES % (AUTO) 11.2 % (2.0-9.0); NEUTROPHILS % (AUTO) 73.1 % (40.0-70.0); PLATELET COUNT (AUTO) 172 K/uL (150-450); RED BLOOD CELL COUNT(AUTO) 4.25 MIL/uL (4.50-5.90); WHITE BLOOD COUNT (AUTO) 12.3 K/uL (4.5-11.0)
[2025-02-08 06:44] LABS: CALCIUM, TOTAL 9.9 mg/dL (8.8-10.5); CREATININE 1.8 mg/dL (0.60-1.30); POTASSIUM 3.8 mmol/L (3.5-5.1)
[2025-02-08 06:50] LABS: GLUCOMETER DEV NAME(LOC) ICU.S6; GLUCOSE,POINT OF CARE 186 MG/DL (70-110)
[2025-02-08 06:52] LABS: BILIRUBIN,TOTAL 1.8 mg/dL (0.1-1.0); MAGNESIUM 2.3 mg/dL (1.80-2.40); PHOSPHORUS 4.2 mg/dL (2.5-4.9); TOTAL PROTEIN, SERUM 7.1 g/dL (6.4-8.2)
[2025-02-08 07:57] LABS: RBC MORPHOLOGY COMMENT ABNORMAL RBC MORPH
[2025-02-08] MEDS: QUEtiapine FUMARATE 25 MG TABLET PEG SCH (09:00)
[2025-02-08] MEDS: METOCLOPRAMIDE HCL 5 MG/ML 2 ML VIAL IVP SCH (09:00)
[2025-02-08] MEDS ORDERED: MEBROFENIN TC99M/MCL ISOTOPE 1 EA INJ INJ ONE (12:20)
[2025-02-08 14:26] LABS: GLUCOMETER DEV NAME(LOC) ICUN.5; GLUCOSE,POINT OF CARE 211 MG/DL (70-110)
[2025-02-08] MEDS: MORPHINE SULFATE 2 MG/ML SYRINGE IVP ONE (15:27)
[2025-02-08 16:45] LABS: APPEARANCE,URINE HAZY (CLEAR); BILIRUBIN,URINE NEGATIVE (NEGATIVE); COLOR,URINE YELLOW (YELLOW); GLUCOSE, URINE (UA) NEGATIVE (NEGATIVE); KETONES,URINE NEGATIVE (NEGATIVE); LEUKOCYTE ESTERASE ,URINE NEGATIVE (NEGATIVE); NITRATE,URINE NEGATIVE (NEGATIVE); OCCULT BLOOD,URINE MODERATE (NEGATIVE); PH,URINE 5.5 (5.0-8.0); PROTEIN,URINE 300-600,SEE CONFIRM mg/dL (NEGATIVE); SPECIFIC GRAVITIY, URINE 1.019 (1.003-1.030); UROBILINOGEN,URINE <=1.0 mg/dL (<=1.0)
[2025-02-08 16:55] LABS: CREATININE,URINE RANDOM 62.3 mg/dL (30.0-125.0); SODIUM,URINE RANDOM 24 mmol/l (20-110); UREA NITROGEN,URINE RANDOM 1192 mg/dL (350-1000)
[2025-02-08 17:05] LABS: SULFOSALICYLIC ACID,URINE 2+ (Negative)
[2025-02-08 17:06] LABS: AMORPHOUS SEDIMENT,UR Few /LPF (None Seen); BACTERIA,URINE None Seen /HPF (None Seen); SQUAMOUS EPITHELIAL CELL,UR Rare /LPF (None Seen); WBC,URINE 0-2 /HPF (0-5)
[2025-02-08] MEDS: SODIUM CHLORIDE 0.45% 1,000 ML IV SCH (20:33)
[2025-02-08 21:06] LABS: GLUCOMETER DEV NAME(LOC) ICU.S6; GLUCOSE,POINT OF CARE 175 MG/DL (70-110)
[2025-02-09] VITALS (16 sets, daily range): BP systolic 122–167; BP diastolic 73–110; PULSE 60–103; RESP 24–33; TEMP 97.2–99.9; O2SAT 93–100
[2025-02-09 00:05] LABS: GLUCOMETER DEV NAME(LOC) ICU.S6; GLUCOSE,POINT OF CARE 181 MG/DL (70-110)
[2025-02-09 05:30] LABS: BASOPHILS % (AUTO) 2.1 % (0.0-2.0); EOSINOPHILS % (AUTO) 3.2 % (1.0-6.0); HEMATOCRIT 36.4 % (41-53); HEMOGLOBIN 11.6 g/dL (13.5-17.5); LYMPHOCYTES % (AUTO) 10.2 % (22.0-44.0); MEAN CORPUSCULAR HEMOGLOBIN 28.4 pg (26.0-34.0); MEAN CORPUSCULAR HGB CONC 31.7 G/dL (31.0-37.0); MEAN CORPUSCULAR VOLUME 90 fL (80-100); MONOCYTES # (AUTO) 0.9 K/uL (0.1-1.0); MONOCYTES % (AUTO) 9.1 % (2.0-9.0); NEUTROPHILS # (AUTO) 7.7 K/uL (1.8-7.7); NEUTROPHILS % (AUTO) 75.4 % (40.0-70.0); PLATELET COUNT (AUTO) 180 K/uL (150-450); RED BLOOD CELL COUNT(AUTO) 4.07 MIL/uL (4.50-5.90); RED CELL DISTRIBUTION WIDTH 23.4 % (11.5-14.5); WHITE BLOOD COUNT (AUTO) 10.2 K/uL (4.5-11.0)
[2025-02-09 05:56] LABS: ALBUMIN 4.5 g/dL (3.4-5.0); BILIRUBIN,TOTAL 1.9 mg/dL (0.1-1.0); CALCIUM, TOTAL 9.8 mg/dL (8.8-10.5); CREATININE 1.75 mg/dL (0.60-1.30); POTASSIUM 3.4 mmol/L (3.5-5.1); TOTAL PROTEIN, SERUM 6.8 g/dL (6.4-8.2)
[2025-02-09 06:21] LABS: RBC MORPHOLOGY COMMENT ABNORMAL RBC MORPH
[2025-02-09 06:46] LABS: GLUCOMETER DEV NAME(LOC) ICUN.5; GLUCOSE,POINT OF CARE 146 MG/DL (70-110)
[2025-02-09] MEDS: POTASSIUM CHLORIDE 10% 40 MEQ/30 ML LIQUID UDCUP NG PRN (09:53)
[2025-02-09 18:05] LABS: GLUCOMETER DEV NAME(LOC) ICUN.5; GLUCOSE,POINT OF CARE 152 MG/DL (70-110)
[2025-02-09 20:10] LABS: GLUCOMETER DEV NAME(LOC) ICU.S6; GLUCOSE,POINT OF CARE 164 MG/DL (70-110)
[2025-02-09 23:41] LABS: GLUCOMETER DEV NAME(LOC) ICU.S6; GLUCOSE,POINT OF CARE 152 MG/DL (70-110)
[2025-02-10] VITALS (15 sets, daily range): BP systolic 128–150; BP diastolic 75–96; PULSE 60–98; RESP 24–33; TEMP 96.2–99.9; O2SAT 97–100
[2025-02-10] MEDS ORDERED: SODIUM CHLORIDE 0.9% 250 ML IV ONE (00:31)
[2025-02-10 06:01] LABS: GLUCOMETER DEV NAME(LOC) ICU.S6; GLUCOSE,POINT OF CARE 173 MG/DL (70-110)
[2025-02-10 06:14] LABS: CALCIUM, TOTAL 9.7 mg/dL (8.8-10.5); CREATININE 1.54 mg/dL (0.60-1.30); MAGNESIUM 2.1 mg/dL (1.80-2.40); PHOSPHORUS 3.4 mg/dL (2.5-4.9); POTASSIUM 3.8 mmol/L (3.5-5.1)
[2025-02-10 08:38] LABS: BASOPHILS % (AUTO) 1.2 % (0.0-2.0); EOSINOPHILS % (AUTO) 2.9 % (1.0-6.0); HEMATOCRIT 34.4 % (41-53); HEMOGLOBIN 10.8 g/dL (13.5-17.5); LYMPHOCYTES % (AUTO) 10.9 % (22.0-44.0); MEAN CORPUSCULAR HEMOGLOBIN 28.4 pg (26.0-34.0); MEAN CORPUSCULAR HGB CONC 31.5 G/dL (31.0-37.0); MEAN CORPUSCULAR VOLUME 90 fL (80-100); MONOCYTES # (AUTO) 0.7 K/uL (0.1-1.0); MONOCYTES % (AUTO) 7.8 % (2.0-9.0); NEUTROPHILS % (AUTO) 77.2 % (40.0-70.0); PLATELET COUNT (AUTO) 150 K/uL (150-450); RED BLOOD CELL COUNT(AUTO) 3.81 MIL/uL (4.50-5.90); RED CELL DISTRIBUTION WIDTH 23.1 % (11.5-14.5)
[2025-02-10 14:26] LABS: GLUCOMETER DEV NAME(LOC) ICU.S6; GLUCOSE,POINT OF CARE 163 MG/DL (70-110)
[2025-02-10] MEDS: FLUCONAZOLE 150 MG TABLET PO ONE (15:40)
[2025-02-10 21:25] LABS: GLUCOMETER DEV NAME(LOC) ICUN.5; GLUCOSE,POINT OF CARE 150 MG/DL (70-110)
[2025-02-11] VITALS (13 sets, daily range): BP systolic 138–158; BP diastolic 81–90; PULSE 60–75; RESP 24–31; TEMP 97.4–99; O2SAT 98–100
[2025-02-11 01:06] LABS: GLUCOMETER DEV NAME(LOC) ICUN.5; GLUCOSE,POINT OF CARE 165 MG/DL (70-110)
[2025-02-11] MEDS ORDERED: SODIUM CHLORIDE 0.9% 250 ML IV ONE (05:04)
[2025-02-11 06:16] LABS: BASOPHILS % (AUTO) 1.4 % (0.0-2.0); EOSINOPHILS % (AUTO) 3.4 % (1.0-6.0); HEMATOCRIT 37.5 % (41-53); HEMOGLOBIN 11.7 g/dL (13.5-17.5); LYMPHOCYTES % (AUTO) 10.7 % (22.0-44.0); MEAN CORPUSCULAR HEMOGLOBIN 28.3 pg (26.0-34.0); MEAN CORPUSCULAR HGB CONC 31.3 G/dL (31.0-37.0); MEAN CORPUSCULAR VOLUME 91 fL (80-100); MONOCYTES # (AUTO) 0.9 K/uL (0.1-1.0); MONOCYTES % (AUTO) 10.1 % (2.0-9.0); NEUTROPHILS # (AUTO) 6.7 K/uL (1.8-7.7); NEUTROPHILS % (AUTO) 74.4 % (40.0-70.0); PLATELET COUNT (AUTO) 143 K/uL (150-450); RED BLOOD CELL COUNT(AUTO) 4.15 MIL/uL (4.50-5.90); RED CELL DISTRIBUTION WIDTH 23.6 % (11.5-14.5)
[2025-02-11 06:24] LABS: CALCIUM, TOTAL 9.8 mg/dL (8.8-10.5); CREATININE 1.46 mg/dL (0.60-1.30); PHOSPHORUS 3.1 mg/dL (2.5-4.9); POTASSIUM 4.2 mmol/L (3.5-5.1)
[2025-02-11 08:31] LABS: GLUCOMETER DEV NAME(LOC) ICU.S6; GLUCOSE,POINT OF CARE 159 MG/DL (70-110)
[2025-02-11 12:56] LABS: GLUCOMETER DEV NAME(LOC) ICU.S6; GLUCOSE,POINT OF CARE 170 MG/DL (70-110)
[2025-02-11] MEDS: QUEtiapine FUMARATE 25 MG TABLET NG SCH (16:56)
[2025-02-11 20:21] LABS: GLUCOMETER DEV NAME(LOC) ICU.S6; GLUCOSE,POINT OF CARE 166 MG/DL (70-110)
[2025-02-12] VITALS (14 sets, daily range): BP systolic 100–156; BP diastolic 70–91; PULSE 60–80; RESP 24–30; TEMP 96.7–100.1; O2SAT 95–100
[2025-02-12 06:15] LABS: GLUCOMETER DEV NAME(LOC) ICUN.5; GLUCOSE,POINT OF CARE 204 MG/DL (70-110)
[2025-02-12 06:15] LABS: GLUCOMETER DEV NAME(LOC) ICUN.5; GLUCOSE,POINT OF CARE 182 MG/DL (70-110)
[2025-02-12 06:25] LABS: EOSINOPHILS % (AUTO) 1.4 % (1.0-6.0); LYMPHOCYTES % (AUTO) 9.7 % (22.0-44.0); MEAN CORPUSCULAR HEMOGLOBIN 28.5 pg (26.0-34.0); MEAN CORPUSCULAR HGB CONC 31.5 G/dL (31.0-37.0); MEAN CORPUSCULAR VOLUME 91 fL (80-100); MONOCYTES # (AUTO) 0.8 K/uL (0.1-1.0); MONOCYTES % (AUTO) 7.9 % (2.0-9.0); NEUTROPHILS # (AUTO) 8.4 K/uL (1.8-7.7); PLATELET COUNT (AUTO) 115 K/uL (150-450); RED CELL DISTRIBUTION WIDTH 23.8 % (11.5-14.5); WHITE BLOOD COUNT (AUTO) 10.5 K/uL (4.5-11.0)
[2025-02-12 06:38] LABS: CALCIUM, TOTAL 9.7 mg/dL (8.8-10.5); CREATININE 1.43 mg/dL (0.60-1.30); POTASSIUM 4.5 mmol/L (3.5-5.1)
[2025-02-12] MEDS: ASPIRIN 81 MG CHEWABLE TABLET PO SCH (08:07)
[2025-02-12] MEDS: CLOPIDOGREL BISULFATE 75 MG TABLET PO SCH (08:07)
[2025-02-12 13:16] LABS: GLUCOMETER DEV NAME(LOC) ICU.S6; GLUCOSE,POINT OF CARE 163 MG/DL (70-110)
[2025-02-12 21:15] LABS: GLUCOMETER DEV NAME(LOC) ICUN.5; GLUCOSE,POINT OF CARE 143 MG/DL (70-110)
[2025-02-13] VITALS (15 sets, daily range): BP systolic 134–159; BP diastolic 80–99; PULSE 60–112; RESP 24–37; TEMP 97.5–99.3; O2SAT 97–100
[2025-02-13 02:56] LABS: GLUCOMETER DEV NAME(LOC) ICU.S6; GLUCOSE,POINT OF CARE 150 MG/DL (70-110)
[2025-02-13 06:24] LABS: BASOPHILS % (AUTO) 1.9 % (0.0-2.0); EOSINOPHILS % (AUTO) 4.1 % (1.0-6.0); HEMATOCRIT 38.5 % (41-53); HEMOGLOBIN 12.3 g/dL (13.5-17.5); LYMPHOCYTES % (AUTO) 12.3 % (22.0-44.0); MEAN CORPUSCULAR HEMOGLOBIN 28.9 pg (26.0-34.0); MEAN CORPUSCULAR HGB CONC 31.8 G/dL (31.0-37.0); MEAN CORPUSCULAR VOLUME 91 fL (80-100); MONOCYTES # (AUTO) 0.8 K/uL (0.1-1.0); MONOCYTES % (AUTO) 9.8 % (2.0-9.0); NEUTROPHILS # (AUTO) 5.9 K/uL (1.8-7.7); NEUTROPHILS % (AUTO) 71.9 % (40.0-70.0); PLATELET COUNT (AUTO) 177 K/uL (150-450); RED BLOOD CELL COUNT(AUTO) 4.24 MIL/uL (4.50-5.90); RED CELL DISTRIBUTION WIDTH 23.6 % (11.5-14.5); WHITE BLOOD COUNT (AUTO) 8.2 K/uL (4.5-11.0)
[2025-02-13 06:35] LABS: PROTHROMBIN TIME 14.4 SEC (9.4-11.6)
[2025-02-13 06:35] LABS: GLUCOMETER DEV NAME(LOC) ICU.S6; GLUCOSE,POINT OF CARE 148 MG/DL (70-110)
[2025-02-13 06:36] LABS: CALCIUM, TOTAL 9.7 mg/dL (8.8-10.5); CREATININE 1.31 mg/dL (0.60-1.30); MAGNESIUM 1.9 mg/dL (1.80-2.40); PHOSPHORUS 2.6 mg/dL (2.5-4.9)
[2025-02-13 07:53] LABS: RBC MORPHOLOGY COMMENT ABNORMAL RBC MORPH
[2025-02-13] MEDS: CeFAZolin SODIUM 1 GM VIAL IM ONE (10:37)
[2025-02-13] MEDS: METOPROLOL SUCCINATE 50 MG ER TABLET PO SCH (12:42)
[2025-02-13 13:51] LABS: GLUCOMETER DEV NAME(LOC) ICUN.5; GLUCOSE,POINT OF CARE 164 MG/DL (70-110)
[2025-02-13] MEDS: AMIODARONE HCL 150 MG in DEXTROSE 5%-WATER 97 ML IV ONE (14:25)
[2025-02-13] MEDS: AMIODARONE HCL 360 MG in DEXTROSE 5%-WATER 242.8 ML IV ONE (14:40)
[2025-02-13] MEDS: LORazepam 2 MG/ML VIAL IVP PRN (16:51)
[2025-02-13] MEDS: LevETIRAcetam 1,000 MG in DEXTROSE 5%-WATER 100 ML IV SCH (17:09)
[2025-02-13] MEDS: LORazepam 2 MG/ML VIAL IVP ONE (17:51)
[2025-02-13] MEDS ORDERED: DEXTROSE 50%-WATER 25 GM/50 ML SYRINGE IVP PRN (18:15)
[2025-02-13] MEDS: INSULIN LISPRO 100 UNITS/ML SQ PRN (18:16)
[2025-02-13 20:40] LABS: GLUCOMETER DEV NAME(LOC) ICU.S6; GLUCOSE,POINT OF CARE 205 MG/DL (70-110)
[2025-02-13] MEDS: AMIODARONE HCL 540 MG in DEXTROSE 5%-WATER 250 ML IV ONE (20:51)
[2025-02-14] VITALS (14 sets, daily range): BP systolic 111–143; BP diastolic 62–85; PULSE 60–67; RESP 24–25; TEMP 98.1–100.7; O2SAT 95–100
[2025-02-14 07:11] LABS: CALCIUM, TOTAL 9.7 mg/dL (8.8-10.5); CREATININE 1.46 mg/dL (0.60-1.30); PHOSPHORUS 3.1 mg/dL (2.5-4.9); POTASSIUM 4.9 mmol/L (3.5-5.1)
[2025-02-14] MEDS: METOCLOPRAMIDE HCL 5 MG/ML 2 ML VIAL IVP SCH (08:43)
[2025-02-14 14:06] LABS: GLUCOMETER DEV NAME(LOC) ICU.S6; GLUCOSE,POINT OF CARE 195 MG/DL (70-110)
[2025-02-14 14:06] LABS: GLUCOMETER DEV NAME(LOC) ICU.S6; GLUCOSE,POINT OF CARE 175 MG/DL (70-110)
[2025-02-14] MEDS: AMIODARONE HCL 750 MG in DEXTROSE 5%-WATER 485 ML IV SCH (14:57)
[2025-02-14] MEDS: DEXTROSE 5%-WATER 1,000 ML IV SCH (18:38)
[2025-02-14 20:01] LABS: GLUCOMETER DEV NAME(LOC) ICU.S6; GLUCOSE,POINT OF CARE 181 MG/DL (70-110)
[2025-02-15] VITALS (14 sets, daily range): BP systolic 120–145; BP diastolic 44–88; PULSE 60–74; RESP 24–30; TEMP 99.2–101.4; O2SAT 93–100
[2025-02-15 00:25] LABS: GLUCOMETER DEV NAME(LOC) ICU.S6; GLUCOSE,POINT OF CARE 162 MG/DL (70-110)
[2025-02-15 06:26] LABS: ALBUMIN 3.9 g/dL (3.4-5.0); BILIRUBIN,TOTAL 2.2 mg/dL (0.1-1.0); CALCIUM, TOTAL 9.4 mg/dL (8.8-10.5); CREATININE 1.43 mg/dL (0.60-1.30); POTASSIUM 4.4 mmol/L (3.5-5.1); TOTAL PROTEIN, SERUM 6.7 g/dL (6.4-8.2)
[2025-02-15 09:07] LABS: BASOPHILS % (AUTO) 0.9 % (0.0-2.0); EOSINOPHILS % (AUTO) 3.2 % (1.0-6.0); HEMATOCRIT 39.5 % (41-53); HEMOGLOBIN 12.7 g/dL (13.5-17.5); LYMPHOCYTES # (AUTO) 1.2 K/uL (1.0-4.8); LYMPHOCYTES % (AUTO) 13.3 % (22.0-44.0); MEAN CORPUSCULAR VOLUME 91 fL (80-100); MONOCYTES % (AUTO) 10.7 % (2.0-9.0); NEUTROPHILS # (AUTO) 6.4 K/uL (1.8-7.7); NEUTROPHILS % (AUTO) 71.9 % (40.0-70.0); PLATELET COUNT (AUTO) 179 K/uL (150-450); RED BLOOD CELL COUNT(AUTO) 4.36 MIL/uL (4.50-5.90); RED CELL DISTRIBUTION WIDTH 23.5 % (11.5-14.5); WHITE BLOOD COUNT (AUTO) 8.9 K/uL (4.5-11.0)
[2025-02-15 09:14] LABS: RBC MORPHOLOGY COMMENT ABNORMAL RBC MORPH
[2025-02-15 10:21] LABS: PLATELET MORPHOLOGY COMMENT GIANT PLTS PRESENT
[2025-02-15] MEDS: AMIODARONE HCL 200 MG TABLET PO SCH (13:28)
[2025-02-15] MEDS: LORazepam 2 MG/ML VIAL IVP ONE (15:55)
[2025-02-15] MEDS: LevETIRAcetam 500 MG in DEXTROSE 5%-WATER 100 ML IV ONE (16:55)
[2025-02-15 18:23] LABS: APPEARANCE,URINE HAZY (CLEAR); BILIRUBIN,URINE NEGATIVE (NEGATIVE); COLOR,URINE YELLOW (YELLOW); GLUCOSE, URINE (UA) TRACE mg/dL (NEGATIVE); KETONES,URINE NEGATIVE (NEGATIVE); LEUKOCYTE ESTERASE ,URINE TRACE (NEGATIVE); NITRATE,URINE NEGATIVE (NEGATIVE); OCCULT BLOOD,URINE LARGE (NEGATIVE); PROTEIN,URINE >600,SEE CONFIRM mg/dL (NEGATIVE); SPECIFIC GRAVITIY, URINE 1.026 (1.003-1.030)
[2025-02-15 18:30] LABS: BACTERIA,URINE Moderate /HPF (None Seen)
[2025-02-15 18:31] LABS: FINE GRANULAR CASTS,URINE 0-2 /LPF (None Seen); HYALINE CASTS, URINE 0-2 /LPF (None Seen)
[2025-02-15 18:32] LABS: SULFOSALICYLIC ACID,URINE 2+ (Negative)
[2025-02-15] MEDS: DAPTOMYCIN 500 MG in SODIUM CHLORIDE 0.9% 50 ML IV SCH (18:39)
[2025-02-15] MEDS: PIPERACILLIN/TAZO 3.375 GM/D5W 50 ML IV SCH (18:39)
[2025-02-15 19:36] LABS: GLUCOMETER DEV NAME(LOC) ICU.S6; GLUCOSE,POINT OF CARE 186 MG/DL (70-110)
[2025-02-15 19:36] LABS: GLUCOMETER DEV NAME(LOC) ICU.S6; GLUCOSE,POINT OF CARE 194 MG/DL (70-110)
[2025-02-16] VITALS (14 sets, daily range): BP systolic 99–139; BP diastolic 50–71; PULSE 60–70; RESP 24–31; TEMP 97.2–99.2; O2SAT 93–99
[2025-02-16 03:06] LABS: GLUCOMETER DEV NAME(LOC) ICU.S6; GLUCOSE,POINT OF CARE 144 MG/DL (70-110)
[2025-02-16 06:10] LABS: GLUCOMETER DEV NAME(LOC) ICUN.5; GLUCOSE,POINT OF CARE 134 MG/DL (70-110)
[2025-02-16 06:53] LABS: CALCIUM, TOTAL 9.3 mg/dL (8.8-10.5); CREATININE 1.55 mg/dL (0.60-1.30); MAGNESIUM 1.8 mg/dL (1.80-2.40); PHOSPHORUS 3.4 mg/dL (2.5-4.9); POTASSIUM 4.2 mmol/L (3.5-5.1)
[2025-02-16] MEDS: LevETIRAcetam 1,500 MG in DEXTROSE 5%-WATER 100 ML IV SCH (08:08)
[2025-02-16] MEDS: MAGNESIUM SULFATE 2 GM/WATER 50 ML IV ONE (14:28)
[2025-02-16] MEDS: DAPTOMYCIN 800 MG in SODIUM CHLORIDE 0.9% 50 ML IV SCH (17:07)
[2025-02-16 18:05] LABS: GLUCOMETER DEV NAME(LOC) ICU.S6; GLUCOSE,POINT OF CARE 129 MG/DL (70-110)
[2025-02-16 19:36] LABS: GLUCOMETER DEV NAME(LOC) ICUN.5; GLUCOSE,POINT OF CARE 140 MG/DL (70-110)
[2025-02-17] VITALS (14 sets, daily range): BP systolic 124–136; BP diastolic 74–80; PULSE 60–65; RESP 24–31; TEMP 95.2–99.4; O2SAT 95–100
[2025-02-17 00:30] LABS: GLUCOMETER DEV NAME(LOC) ICU.S6; GLUCOSE,POINT OF CARE 147 MG/DL (70-110)
[2025-02-17 05:46] LABS: GLUCOMETER DEV NAME(LOC) ICU.S6; GLUCOSE,POINT OF CARE 178 MG/DL (70-110)
[2025-02-17 09:56] LABS: ALBUMIN 3.3 g/dL (3.4-5.0); BILIRUBIN,TOTAL 1.7 mg/dL (0.1-1.0); CALCIUM, TOTAL 8.8 mg/dL (8.8-10.5); CREATININE 1.67 mg/dL (0.60-1.30); PHOSPHORUS 3.6 mg/dL (2.5-4.9); POTASSIUM 3.7 mmol/L (3.5-5.1); TOTAL PROTEIN, SERUM 6.2 g/dL (6.4-8.2)
[2025-02-17 13:43] LABS: BASOPHILS % (AUTO) 0.4 % (0.0-2.0); EOSINOPHILS % (AUTO) 5.4 % (1.0-6.0); HEMATOCRIT 37.1 % (41-53); HEMOGLOBIN 11.7 g/dL (13.5-17.5); LYMPHOCYTES # (AUTO) 0.7 K/uL (1.0-4.8); LYMPHOCYTES % (AUTO) 6.8 % (22.0-44.0); MEAN CORPUSCULAR HEMOGLOBIN 28.7 pg (26.0-34.0); MEAN CORPUSCULAR HGB CONC 31.6 G/dL (31.0-37.0); MEAN CORPUSCULAR VOLUME 91 fL (80-100); MONOCYTES # (AUTO) 0.9 K/uL (0.1-1.0); MONOCYTES % (AUTO) 8.5 % (2.0-9.0); NEUTROPHILS # (AUTO) 8.5 K/uL (1.8-7.7); NEUTROPHILS % (AUTO) 78.9 % (40.0-70.0); PLATELET COUNT (AUTO) 143 K/uL (150-450); RED BLOOD CELL COUNT(AUTO) 4.08 MIL/uL (4.50-5.90); RED CELL DISTRIBUTION WIDTH 23.6 % (11.5-14.5); WHITE BLOOD COUNT (AUTO) 10.7 K/uL (4.5-11.0)
[2025-02-17 14:10] LABS: RBC MORPHOLOGY COMMENT ABNORMAL RBC MORPH
[2025-02-17 17:31] LABS: GLUCOMETER DEV NAME(LOC) ICUN.5; GLUCOSE,POINT OF CARE 180 MG/DL (70-110)
[2025-02-17] MEDS: PIPERACILLIN/TAZO 3.375 GM/D5W 50 ML IV SCH (18:04)
[2025-02-17 18:16] LABS: GLUCOMETER DEV NAME(LOC) ICU.S6; GLUCOSE,POINT OF CARE 162 MG/DL (70-110)
[2025-02-18] VITALS (15 sets, daily range): BP systolic 124–146; BP diastolic 70–105; PULSE 60–69; RESP 19–26; TEMP 97.7–100.3; O2SAT 97–100
[2025-02-18 05:31] LABS: GLUCOMETER DEV NAME(LOC) ICUN.5; GLUCOSE,POINT OF CARE 126 MG/DL (70-110)
[2025-02-18 05:55] LABS: GLUCOMETER DEV NAME(LOC) ICUN.5; GLUCOSE,POINT OF CARE 139 MG/DL (70-110)
[2025-02-18 09:12] LABS: BASOPHILS % (AUTO) 0.8 % (0.0-2.0); EOSINOPHILS % (AUTO) 5.8 % (1.0-6.0); HEMATOCRIT 35.8 % (41-53); HEMOGLOBIN 11.6 g/dL (13.5-17.5); LYMPHOCYTES # (AUTO) 0.9 K/uL (1.0-4.8); LYMPHOCYTES % (AUTO) 9.1 % (22.0-44.0); MEAN CORPUSCULAR HGB CONC 32.3 G/dL (31.0-37.0); MEAN CORPUSCULAR VOLUME 90 fL (80-100); MONOCYTES % (AUTO) 9.8 % (2.0-9.0); NEUTROPHILS # (AUTO) 7.6 K/uL (1.8-7.7); NEUTROPHILS % (AUTO) 74.5 % (40.0-70.0); PLATELET COUNT (AUTO) 146 K/uL (150-450); RED BLOOD CELL COUNT(AUTO) 3.98 MIL/uL (4.50-5.90); RED CELL DISTRIBUTION WIDTH 22.9 % (11.5-14.5); WHITE BLOOD COUNT (AUTO) 10.2 K/uL (4.5-11.0)
[2025-02-18 09:17] LABS: RBC MORPHOLOGY COMMENT ABNORMAL RBC MORPH
[2025-02-18 09:28] LABS: CALCIUM, TOTAL 8.9 mg/dL (8.8-10.5); CREATININE 1.8 mg/dL (0.60-1.30); POTASSIUM 3.8 mmol/L (3.5-5.1)
[2025-02-18 12:16] LABS: GLUCOMETER DEV NAME(LOC) ICUN.5; GLUCOSE,POINT OF CARE 156 MG/DL (70-110)
[2025-02-18] MEDS: FUROSEMIDE 40 MG/4 ML VIAL IVP ONE (13:26)
[2025-02-18 13:46] LABS: ABG BASE EXCESS -6.3 mmol/L (-2.0-3.0); ABG CARBOXYHEMOGLOBIN 0.5 % (0.5-1.5); ABG METHEMOGLOBIN 0.1 % (0.0-1.5); ABG OXYGEN CONTENT 16.8 mL/dL (15.0-23.0); ABG OXYGEN SATURATION 98.1 % (94.0-98.0); ABG OXYHEMOGLOBIN 97.5 % (94.0-98.0); ABG PCO2 34 mmHg (32.0-48.0); ABG PH 7.371 (7.350-7.450); ABG TOTAL HEMOGLOBIN 12.1 G/dL (13.5-17.5); PO2, ARTERIAL BG 114.3 mmHg (83.0-108.0); SOURCE, BLOOD GAS ARTERIAL; TEMPERATURE, FAHRENHEIT, BG 98.2 FAHREN (96.0-98.6)
[2025-02-18 13:47] LABS: ALLEN TEST, BLOOD GAS POS; O2 DEVICE,BLOOD GAS VENTILATOR (ROOM AIR); SITE, BLOOD GAS RT RADIAL; VENT MODE, BG CPAP (ROOM AIR)
[2025-02-18 13:48] LABS: PEEP,BG 5 cm H2O; PRESSURE SUPPORT, BG 10 cm H2O; SPONTANEOUS VT, BG 349 ml
[2025-02-18] MEDS: *CLINICAL-LEVOFLOXACIN IVPB DOSING CLINICAL ONE (16:47)
[2025-02-18] MEDS: LEVOFLOXACIN 750 MG/D5% WATER 150 ML IV SCH (17:18)
[2025-02-18] MEDS: NAFCILLIN SODIUM 2 GM in DEXTROSE 5%-WATER 100 ML IV SCH (17:18)
[2025-02-18 18:51] LABS: GLUCOMETER DEV NAME(LOC) ICUN.5; GLUCOSE,POINT OF CARE 159 MG/DL (70-110)
[2025-02-18 23:56] LABS: GLUCOMETER DEV NAME(LOC) ICU.S6; GLUCOSE,POINT OF CARE 186 MG/DL (70-110)
[2025-02-19] VITALS (14 sets, daily range): BP systolic 121–150; BP diastolic 67–75; PULSE 60–69; RESP 24–35; TEMP 96.7–99.2; O2SAT 64–100
[2025-02-19] MEDS ORDERED: SODIUM CHLORIDE 0.9% 250 ML IV ONE (01:49)
[2025-02-19 05:51] LABS: GLUCOMETER DEV NAME(LOC) ICUN.5; GLUCOSE,POINT OF CARE 152 MG/DL (70-110)
[2025-02-19 07:58] LABS: BASOPHILS % (AUTO) 0.9 % (0.0-2.0); EOSINOPHILS % (AUTO) 5.5 % (1.0-6.0); HEMATOCRIT 38.6 % (41-53); HEMOGLOBIN 12.2 g/dL (13.5-17.5); LYMPHOCYTES # (AUTO) 0.9 K/uL (1.0-4.8); LYMPHOCYTES % (AUTO) 9.3 % (22.0-44.0); MEAN CORPUSCULAR HEMOGLOBIN 28.4 pg (26.0-34.0); MEAN CORPUSCULAR HGB CONC 31.5 G/dL (31.0-37.0); MEAN CORPUSCULAR VOLUME 90 fL (80-100); MONOCYTES % (AUTO) 10.4 % (2.0-9.0); NEUTROPHILS # (AUTO) 7.1 K/uL (1.8-7.7); NEUTROPHILS % (AUTO) 73.9 % (40.0-70.0); PLATELET COUNT (AUTO) 151 K/uL (150-450); RED BLOOD CELL COUNT(AUTO) 4.28 MIL/uL (4.50-5.90); RED CELL DISTRIBUTION WIDTH 23.3 % (11.5-14.5); WHITE BLOOD COUNT (AUTO) 9.6 K/uL (4.5-11.0)
[2025-02-19 08:12] LABS: CALCIUM, TOTAL 8.7 mg/dL (8.8-10.5); CREATININE 2.17 mg/dL (0.60-1.30); MAGNESIUM 2.2 mg/dL (1.80-2.40); PHOSPHORUS 4.3 mg/dL (2.5-4.9); POTASSIUM 4.1 mmol/L (3.5-5.1)
[2025-02-19] MEDS ORDERED: FUROSEMIDE 20 MG/2 ML VIAL IVP SCH (09:00)
[2025-02-19 09:02] LABS: RBC MORPHOLOGY COMMENT ABNORMAL RBC MORPH
[2025-02-19] MEDS: FUROSEMIDE 40 MG/4 ML VIAL IVP SCH (10:21)
[2025-02-19 19:31] LABS: GLUCOMETER DEV NAME(LOC) ICU.S6; GLUCOSE,POINT OF CARE 144 MG/DL (70-110)
[2025-02-19 19:31] LABS: GLUCOMETER DEV NAME(LOC) ICUN.5; GLUCOSE,POINT OF CARE 138 MG/DL (70-110)
[2025-02-20] VITALS (14 sets, daily range): BP systolic 98–132; BP diastolic 62–78; PULSE 60–64; RESP 24–34; TEMP 97.1–98.5; O2SAT 95–100
[2025-02-20 00:46] LABS: GLUCOMETER DEV NAME(LOC) ICU.S6; GLUCOSE,POINT OF CARE 149 MG/DL (70-110)
[2025-02-20 05:41] LABS: GLUCOMETER DEV NAME(LOC) ICUN.5; GLUCOSE,POINT OF CARE 125 MG/DL (70-110)
[2025-02-20 06:29] LABS: BASOPHILS % (AUTO) 0.8 % (0.0-2.0); HEMATOCRIT 41.6 % (41-53); LYMPHOCYTES # (AUTO) 0.8 K/uL (1.0-4.8); LYMPHOCYTES % (AUTO) 7.6 % (22.0-44.0); MEAN CORPUSCULAR HEMOGLOBIN 28.3 pg (26.0-34.0); MEAN CORPUSCULAR HGB CONC 31.3 G/dL (31.0-37.0); MEAN CORPUSCULAR VOLUME 90 fL (80-100); MONOCYTES # (AUTO) 1.2 K/uL (0.1-1.0); MONOCYTES % (AUTO) 12.1 % (2.0-9.0); NEUTROPHILS # (AUTO) 7.2 K/uL (1.8-7.7); NEUTROPHILS % (AUTO) 73.5 % (40.0-70.0); PLATELET COUNT (AUTO) 168 K/uL (150-450); RED CELL DISTRIBUTION WIDTH 22.7 % (11.5-14.5); WHITE BLOOD COUNT (AUTO) 9.8 K/uL (4.5-11.0)
[2025-02-20 07:10] LABS: ALBUMIN 2.6 g/dL (3.4-5.0); BILIRUBIN,TOTAL 2.6 mg/dL (0.1-1.0); CALCIUM, TOTAL 8.5 mg/dL (8.8-10.5); CREATININE 2.5 mg/dL (0.60-1.30); POTASSIUM 4.2 mmol/L (3.5-5.1); TOTAL PROTEIN, SERUM 5.8 g/dL (6.4-8.2)
[2025-02-20 08:15] LABS: RBC MORPHOLOGY COMMENT ABNORMAL RBC MORPH
[2025-02-20] MEDS ORDERED: MORPHINE SULFATE 2 MG/ML SYRINGE IVP PRN (09:15)
[2025-02-20] MEDS ORDERED: SODIUM CHLORIDE 0.9% 250 ML IV ONE (11:54)
[2025-02-20 17:16] LABS: GLUCOMETER DEV NAME(LOC) ICU.S6; GLUCOSE,POINT OF CARE 203 MG/DL (70-110)
[2025-02-20 23:41] LABS: GLUCOMETER DEV NAME(LOC) ICUN.5; GLUCOSE,POINT OF CARE 139 MG/DL (70-110)
[2025-02-21] VITALS (15 sets, daily range): BP systolic 120–135; BP diastolic 55–90; PULSE 60–67; RESP 24–34; TEMP 96.5–97.8; O2SAT 98–100
[2025-02-21 01:20] LABS: GLUCOMETER DEV NAME(LOC) ICUN.5; GLUCOSE,POINT OF CARE 156 MG/DL (70-110)
[2025-02-21 05:41] LABS: GLUCOMETER DEV NAME(LOC) ICUN.5; GLUCOSE,POINT OF CARE 117 MG/DL (70-110)
[2025-02-21 06:12] LABS: CALCIUM, TOTAL 8.8 mg/dL (8.8-10.5); CREATININE 2.81 mg/dL (0.60-1.30); POTASSIUM 4.5 mmol/L (3.5-5.1)
[2025-02-21] MEDS ORDERED: BENZOCAINE 20% 50 MCG/SPRAY 57 GM ONE (09:04)
[2025-02-21 12:36] LABS: GLUCOMETER DEV NAME(LOC) ICU.S6; GLUCOSE,POINT OF CARE 132 MG/DL (70-110)
[2025-02-21] MEDS: *CLINICAL-MEROPENEM DOSING CLINICAL ONE (15:38)
[2025-02-21] MEDS ORDERED: LEVOFLOXACIN 750 MG/D5% WATER 150 ML IV SCH (17:00)
[2025-02-21] MEDS: MEROPENEM 1 GM in SODIUM CHLORIDE 0.9% 50 ML IV SCH (17:12)
[2025-02-21 21:41] LABS: GLUCOMETER DEV NAME(LOC) ICU.S6; GLUCOSE,POINT OF CARE 128 MG/DL (70-110)
[2025-02-22] VITALS (14 sets, daily range): BP systolic 129–136; BP diastolic 65–79; PULSE 60–70; RESP 24–26; TEMP 98.1–99.3; O2SAT 96–100
[2025-02-22 00:36] LABS: GLUCOMETER DEV NAME(LOC) ICU.S6; GLUCOSE,POINT OF CARE 155 MG/DL (70-110)
[2025-02-22 05:56] LABS: GLUCOMETER DEV NAME(LOC) ICU.S6; GLUCOSE,POINT OF CARE 160 MG/DL (70-110)
[2025-02-22 07:48] LABS: BASOPHILS % (AUTO) 0.7 % (0.0-2.0); EOSINOPHILS % (AUTO) 3.2 % (1.0-6.0); HEMATOCRIT 39.2 % (41-53); HEMOGLOBIN 12.5 g/dL (13.5-17.5); LYMPHOCYTES # (AUTO) 0.9 K/uL (1.0-4.8); LYMPHOCYTES % (AUTO) 8.3 % (22.0-44.0); MEAN CORPUSCULAR HEMOGLOBIN 28.1 pg (26.0-34.0); MEAN CORPUSCULAR HGB CONC 31.9 G/dL (31.0-37.0); MEAN CORPUSCULAR VOLUME 88 fL (80-100); MONOCYTES # (AUTO) 1.3 K/uL (0.1-1.0); MONOCYTES % (AUTO) 12.3 % (2.0-9.0); NEUTROPHILS # (AUTO) 8.1 K/uL (1.8-7.7); NEUTROPHILS % (AUTO) 75.5 % (40.0-70.0); PLATELET COUNT (AUTO) 228 K/uL (150-450); RED BLOOD CELL COUNT(AUTO) 4.46 MIL/uL (4.50-5.90); WHITE BLOOD COUNT (AUTO) 10.8 K/uL (4.5-11.0)
[2025-02-22 07:49] LABS: BILIRUBIN,TOTAL 2.8 mg/dL (0.1-1.0); CALCIUM, TOTAL 7.6 mg/dL (8.8-10.5); CREATININE 3.01 mg/dL (0.60-1.30); POTASSIUM 5.6 mmol/L (3.5-5.1)
[2025-02-22 07:55] LABS: RBC MORPHOLOGY COMMENT ABNORMAL RBC MORPH
[2025-02-22] MEDS: SODIUM ZIRCONIUM CYCLOSILICATE 10 GM POWDER PACKET PO ONE (12:17)
[2025-02-22 13:01] LABS: GLUCOMETER DEV NAME(LOC) ICU.S6; GLUCOSE,POINT OF CARE 142 MG/DL (70-110)
[2025-02-22 18:51] LABS: GLUCOMETER DEV NAME(LOC) ICUN.5; GLUCOSE,POINT OF CARE 156 MG/DL (70-110)
[2025-02-23] VITALS (14 sets, daily range): BP systolic 129–148; BP diastolic 66–81; PULSE 60–100; RESP 24–30; TEMP 98.7–99.6; O2SAT 60–100
[2025-02-23 00:16] LABS: GLUCOMETER DEV NAME(LOC) ICUN.5; GLUCOSE,POINT OF CARE 156 MG/DL (70-110)
[2025-02-23 05:40] LABS: GLUCOMETER DEV NAME(LOC) ICU.S6; GLUCOSE,POINT OF CARE 154 MG/DL (70-110)
[2025-02-23 06:52] LABS: BASOPHILS % (AUTO) 0.8 % (0.0-2.0); EOSINOPHILS % (AUTO) 2.2 % (1.0-6.0); HEMATOCRIT 38.7 % (41-53); HEMOGLOBIN 12.5 g/dL (13.5-17.5); LYMPHOCYTES % (AUTO) 9.8 % (22.0-44.0); MEAN CORPUSCULAR HEMOGLOBIN 28.2 pg (26.0-34.0); MEAN CORPUSCULAR HGB CONC 32.3 G/dL (31.0-37.0); MEAN CORPUSCULAR VOLUME 87 fL (80-100); MONOCYTES # (AUTO) 1.1 K/uL (0.1-1.0); NEUTROPHILS # (AUTO) 7.7 K/uL (1.8-7.7); NEUTROPHILS % (AUTO) 76.2 % (40.0-70.0); PLATELET COUNT (AUTO) 240 K/uL (150-450); RED BLOOD CELL COUNT(AUTO) 4.44 MIL/uL (4.50-5.90); RED CELL DISTRIBUTION WIDTH 22.5 % (11.5-14.5)
[2025-02-23 07:12] LABS: CALCIUM, TOTAL 9.3 mg/dL (8.8-10.5); CREATININE 2.85 mg/dL (0.60-1.30); POTASSIUM 4.4 mmol/L (3.5-5.1)
[2025-02-23] MEDS ORDERED: SODIUM CHLORIDE 0.9% 1,000 ML IV ONE (12:15)
[2025-02-23 13:00] LABS: GLUCOMETER DEV NAME(LOC) ICUN.5; GLUCOSE,POINT OF CARE 183 MG/DL (70-110)
[2025-02-23 20:06] LABS: GLUCOMETER DEV NAME(LOC) ICUN.5; GLUCOSE,POINT OF CARE 181 MG/DL (70-110)
[2025-02-23 20:07] LABS: APPEARANCE,URINE HAZY (CLEAR); BILIRUBIN,URINE NEGATIVE (NEGATIVE); COLOR,URINE YELLOW (YELLOW); GLUCOSE, URINE (UA) NEGATIVE (NEGATIVE); KETONES,URINE NEGATIVE (NEGATIVE); LEUKOCYTE ESTERASE ,URINE NEGATIVE (NEGATIVE); NITRATE,URINE NEGATIVE (NEGATIVE); OCCULT BLOOD,URINE MODERATE (NEGATIVE); PROTEIN,URINE 100-200,SEE CONFIRM mg/dL (NEGATIVE); SPECIFIC GRAVITIY, URINE 1.013 (1.003-1.030); UROBILINOGEN,URINE <=1.0 mg/dL (<=1.0)
[2025-02-23 20:09] LABS: CREATININE,URINE RANDOM 33.3 mg/dL (30.0-125.0); PROTEIN,URINE RANDOM 115 mg/dL (0-11.9)
[2025-02-23 20:18] LABS: BACTERIA,URINE Rare /HPF (None Seen); RBC,URINE 0-2 /HPF (0-2); SQUAMOUS EPITHELIAL CELL,UR Rare /LPF (None Seen); WBC,URINE 0-2 /HPF (0-5)
[2025-02-23 20:27] LABS: SULFOSALICYLIC ACID,URINE 1+ (Negative)
[2025-02-24] VITALS (14 sets, daily range): BP systolic 113–152; BP diastolic 65–81; PULSE 60–79; RESP 24–27; TEMP 98.7–99.8; O2SAT 74–100
[2025-02-24 04:26] LABS: GLUCOMETER DEV NAME(LOC) ICUN.5; GLUCOSE,POINT OF CARE 202 MG/DL (70-110)
[2025-02-24 06:16] LABS: GLUCOMETER DEV NAME(LOC) ICUN.5; GLUCOSE,POINT OF CARE 165 MG/DL (70-110)
[2025-02-24 07:22] LABS: BILIRUBIN,TOTAL 1.3 mg/dL (0.1-1.0); CALCIUM, TOTAL 8.8 mg/dL (8.8-10.5); CREATININE 2.68 mg/dL (0.60-1.30); POTASSIUM 4.5 mmol/L (3.5-5.1)
[2025-02-24 16:31] LABS: GLUCOMETER DEV NAME(LOC) ICUN.5; GLUCOSE,POINT OF CARE 157 MG/DL (70-110)
[2025-02-24 20:11] LABS: GLUCOMETER DEV NAME(LOC) ICUN.5; GLUCOSE,POINT OF CARE 197 MG/DL (70-110)
[2025-02-25] VITALS (13 sets, daily range): BP systolic 135–155; BP diastolic 76–90; PULSE 62–73; RESP 24; TEMP 98.2–99.8; O2SAT 98–100
[2025-02-25 01:10] LABS: GLUCOMETER DEV NAME(LOC) ICUN.5; GLUCOSE,POINT OF CARE 215 MG/DL (70-110)
[2025-02-25 06:03] LABS: BASOPHILS % (AUTO) 0.8 % (0.0-2.0); CALCIUM, TOTAL 9.2 mg/dL (8.8-10.5); CREATININE 2.43 mg/dL (0.60-1.30); EOSINOPHILS % (AUTO) 2.1 % (1.0-6.0); HEMATOCRIT 38.5 % (41-53); HEMOGLOBIN 12.4 g/dL (13.5-17.5); LYMPHOCYTES # (AUTO) 1.3 K/uL (1.0-4.8); LYMPHOCYTES % (AUTO) 12.3 % (22.0-44.0); MEAN CORPUSCULAR HEMOGLOBIN 28.6 pg (26.0-34.0); MEAN CORPUSCULAR HGB CONC 32.3 G/dL (31.0-37.0); MEAN CORPUSCULAR VOLUME 89 fL (80-100); MONOCYTES # (AUTO) 1.4 K/uL (0.1-1.0); MONOCYTES % (AUTO) 13.3 % (2.0-9.0); NEUTROPHILS # (AUTO) 7.5 K/uL (1.8-7.7); NEUTROPHILS % (AUTO) 71.5 % (40.0-70.0); PLATELET COUNT (AUTO) 220 K/uL (150-450); POTASSIUM 4.6 mmol/L (3.5-5.1); RED BLOOD CELL COUNT(AUTO) 4.34 MIL/uL (4.50-5.90); RED CELL DISTRIBUTION WIDTH 23.1 % (11.5-14.5); WHITE BLOOD COUNT (AUTO) 10.5 K/uL (4.5-11.0)
[2025-02-25 06:11] LABS: GLUCOMETER DEV NAME(LOC) ICU.S6; GLUCOSE,POINT OF CARE 189 MG/DL (70-110)
[2025-02-25 17:20] LABS: GLUCOMETER DEV NAME(LOC) ICUN.5; GLUCOSE,POINT OF CARE 195 MG/DL (70-110)
[2025-02-25 18:46] LABS: GLUCOMETER DEV NAME(LOC) ICU.S6; GLUCOSE,POINT OF CARE 161 MG/DL (70-110)
[2025-02-25 23:57] LABS: GLUCOMETER DEV NAME(LOC) ICU.S6; GLUCOSE,POINT OF CARE 170 MG/DL (70-110)
[2025-02-26] VITALS (14 sets, daily range): BP systolic 134–157; BP diastolic 77–91; PULSE 72–92; RESP 24; TEMP 98.6–99.3; O2SAT 98–100
[2025-02-26 01:06] LABS: COMPLEMENT C3 157 mg/dL (82-167); COMPLEMENT C4 20 mg/dL (12-38)
[2025-02-26 03:07] LABS: CREATININE, URINE (mALB) 37.1 mg/dL (Not Estab.)
[2025-02-26] MEDS ORDERED: LIDOCAINE/PF 2% 5 ML VIAL ONE (05:22)
[2025-02-26] MEDS ORDERED: PROPOFOL 1% 20 ML VIAL IVP ONE (05:22)
[2025-02-26] MEDS ORDERED: CeFAZolin SODIUM 1 GM VIAL ONE (05:22)
[2025-02-26] MEDS ORDERED: 0.9% SODIUM CHLORIDE 10 ML VIAL ONE (05:22)
[2025-02-26 06:09] LABS: BASOPHILS % (AUTO) 1.3 % (0.0-2.0); EOSINOPHILS % (AUTO) 3.1 % (1.0-6.0); HEMATOCRIT 37.6 % (41-53); LYMPHOCYTES # (AUTO) 0.8 K/uL (1.0-4.8); LYMPHOCYTES % (AUTO) 7.7 % (22.0-44.0); MEAN CORPUSCULAR HEMOGLOBIN 28.2 pg (26.0-34.0); MEAN CORPUSCULAR HGB CONC 31.8 G/dL (31.0-37.0); MEAN CORPUSCULAR VOLUME 89 fL (80-100); MONOCYTES # (AUTO) 1.1 K/uL (0.1-1.0); MONOCYTES % (AUTO) 10.2 % (2.0-9.0); NEUTROPHILS # (AUTO) 8.3 K/uL (1.8-7.7); NEUTROPHILS % (AUTO) 77.7 % (40.0-70.0); PLATELET COUNT (AUTO) 242 K/uL (150-450); RED BLOOD CELL COUNT(AUTO) 4.25 MIL/uL (4.50-5.90); RED CELL DISTRIBUTION WIDTH 21.6 % (11.5-14.5); WHITE BLOOD COUNT (AUTO) 10.8 K/uL (4.5-11.0)
[2025-02-26 06:22] LABS: CALCIUM, TOTAL 9.3 mg/dL (8.8-10.5); CREATININE 2.27 mg/dL (0.60-1.30); MAGNESIUM 1.9 mg/dL (1.80-2.40); PHOSPHORUS 4.3 mg/dL (2.5-4.9); POTASSIUM 4.1 mmol/L (3.5-5.1)
[2025-02-26 06:26] LABS: GLUCOMETER DEV NAME(LOC) ICU.S6; GLUCOSE,POINT OF CARE 134 MG/DL (70-110)
[2025-02-26 13:41] LABS: GLUCOMETER DEV NAME(LOC) ICU.S6; GLUCOSE,POINT OF CARE 147 MG/DL (70-110)
[2025-02-26 18:16] LABS: GLUCOMETER DEV NAME(LOC) ICU.S6; GLUCOSE,POINT OF CARE 161 MG/DL (70-110)
[2025-02-26] MEDS: FUROSEMIDE 20 MG/2 ML VIAL IVP ONE (19:55)
[2025-02-26] MEDS ORDERED: METOPROLOL TARTRATE 50 MG TABLET PO ONE (22:45)
[2025-02-26] MEDS ORDERED: METOPROLOL SUCCINATE 50 MG ER TABLET PO ONE (23:00)
[2025-02-26] MEDS: METOPROLOL SUCCINATE 50 MG ER TABLET PO ONE (23:06)
[2025-02-27] VITALS (13 sets, daily range): BP systolic 132–165; BP diastolic 77–101; PULSE 60–96; RESP 24–25; TEMP 97.6–99.4; O2SAT 98–100
[2025-02-27 00:26] LABS: GLUCOMETER DEV NAME(LOC) ICU.S6; GLUCOSE,POINT OF CARE 213 MG/DL (70-110)
[2025-02-27 05:51] LABS: GLUCOMETER DEV NAME(LOC) ICU.S6; GLUCOSE,POINT OF CARE 177 MG/DL (70-110)
[2025-02-27 06:39] LABS: BASOPHILS % (AUTO) 0.8 % (0.0-2.0); EOSINOPHILS % (AUTO) 0.9 % (1.0-6.0); HEMOGLOBIN 11.7 g/dL (13.5-17.5); LYMPHOCYTES # (AUTO) 0.7 K/uL (1.0-4.8); LYMPHOCYTES % (AUTO) 6.2 % (22.0-44.0); MEAN CORPUSCULAR HEMOGLOBIN 27.9 pg (26.0-34.0); MEAN CORPUSCULAR HGB CONC 31.6 G/dL (31.0-37.0); MEAN CORPUSCULAR VOLUME 88 fL (80-100); MONOCYTES # (AUTO) 1.2 K/uL (0.1-1.0); MONOCYTES % (AUTO) 10.1 % (2.0-9.0); NEUTROPHILS # (AUTO) 9.8 K/uL (1.8-7.7); PLATELET COUNT (AUTO) 175 K/uL (150-450); RED BLOOD CELL COUNT(AUTO) 4.19 MIL/uL (4.50-5.90); RED CELL DISTRIBUTION WIDTH 22.3 % (11.5-14.5); WHITE BLOOD COUNT (AUTO) 11.9 K/uL (4.5-11.0)
[2025-02-27 07:00] LABS: ALBUMIN 2.9 g/dL (3.4-5.0); BILIRUBIN,TOTAL 1.5 mg/dL (0.1-1.0); CALCIUM, TOTAL 9.1 mg/dL (8.8-10.5); CREATININE 1.9 mg/dL (0.60-1.30); PHOSPHORUS 4.3 mg/dL (2.5-4.9); POTASSIUM 4.1 mmol/L (3.5-5.1); TOTAL PROTEIN, SERUM 6.6 g/dL (6.4-8.2)
[2025-02-27 07:04] LABS: MAGNESIUM 1.8 mg/dL (1.80-2.40)
[2025-02-27] MEDS: HYDROGEN PEROXIDE 473 ML SOLUTION TP SCH (08:02)
[2025-02-27] MEDS: POVIDONE-IODINE 10% 240 ML SOLUTION TP SCH (08:03)
[2025-02-27] MEDS: FUROSEMIDE 20 MG/2 ML VIAL IVP ONE (10:42)
[2025-02-27 10:57] LABS: RBC MORPHOLOGY COMMENT ABNORMAL RBC MORPH
[2025-02-27 13:01] LABS: GLUCOMETER DEV NAME(LOC) ICUN.5; GLUCOSE,POINT OF CARE 165 MG/DL (70-110)
[2025-02-27 20:01] LABS: GLUCOMETER DEV NAME(LOC) ICU.S6; GLUCOSE,POINT OF CARE 173 MG/DL (70-110)
[2025-02-27] MEDS: LevETIRAcetam 500 MG TABLET PEG SCH (20:25)
[2025-02-28] VITALS (17 sets, daily range): BP systolic 137–157; BP diastolic 71–96; PULSE 60–88; RESP 22–26; TEMP 97.8–98.8; O2SAT 94–100
[2025-02-28 05:16] LABS: GLUCOMETER DEV NAME(LOC) ICU.S6; GLUCOSE,POINT OF CARE 162 MG/DL (70-110)
[2025-02-28 07:05] LABS: GLUCOMETER DEV NAME(LOC) ICUN.5; GLUCOSE,POINT OF CARE 144 MG/DL (70-110)
[2025-02-28] MEDS ORDERED: SODIUM CHLORIDE 0.9% 500 ML IV ONE (17:12)
[2025-02-28 17:56] LABS: GLUCOMETER DEV NAME(LOC) ICUN.5; GLUCOSE,POINT OF CARE 156 MG/DL (70-110)
[2025-03-01] VITALS (17 sets, daily range): BP systolic 135–149; BP diastolic 81–104; PULSE 66–110; RESP 17–31; TEMP 98.1–100.2; O2SAT 95–100
[2025-03-01 07:35] LABS: EOSINOPHILS % (AUTO) 2.1 % (1.0-6.0); HEMATOCRIT 37.5 % (41-53); HEMOGLOBIN 11.8 g/dL (13.5-17.5); LYMPHOCYTES # (AUTO) 0.9 K/uL (1.0-4.8); LYMPHOCYTES % (AUTO) 7.3 % (22.0-44.0); MEAN CORPUSCULAR HEMOGLOBIN 28.2 pg (26.0-34.0); MEAN CORPUSCULAR HGB CONC 31.4 G/dL (31.0-37.0); MEAN CORPUSCULAR VOLUME 90 fL (80-100); MONOCYTES # (AUTO) 0.9 K/uL (0.1-1.0); MONOCYTES % (AUTO) 7.4 % (2.0-9.0); NEUTROPHILS # (AUTO) 10.3 K/uL (1.8-7.7); NEUTROPHILS % (AUTO) 82.2 % (40.0-70.0); PLATELET COUNT (AUTO) 274 K/uL (150-450); RED BLOOD CELL COUNT(AUTO) 4.17 MIL/uL (4.50-5.90); RED CELL DISTRIBUTION WIDTH 22.4 % (11.5-14.5); WHITE BLOOD COUNT (AUTO) 12.6 K/uL (4.5-11.0)
[2025-03-01 07:43] LABS: RBC MORPHOLOGY COMMENT ABNORMAL RBC MORPH
[2025-03-01 07:55] LABS: ALBUMIN 3.1 g/dL (3.4-5.0); BILIRUBIN,TOTAL 1.2 mg/dL (0.1-1.0); CALCIUM, TOTAL 9.2 mg/dL (8.8-10.5); CREATININE 1.64 mg/dL (0.60-1.30); POTASSIUM 4.1 mmol/L (3.5-5.1); TOTAL PROTEIN, SERUM 7.2 g/dL (6.4-8.2)
[2025-03-01] MEDS ORDERED: SODIUM CHLORIDE 0.9% 500 ML IV ONE (13:49)
[2025-03-01] MEDS ORDERED: ASPI-1450 PO (14:55)
[2025-03-01] MEDS ORDERED: AMIO400T4 PO (14:55)
[2025-03-01] MEDS ORDERED: ATOR-427 PO (14:56)
[2025-03-01] MEDS ORDERED: CHLO2TOW (14:58)
[2025-03-01] MEDS ORDERED: [UNRECOGNIZED DRUG - CODE] TP (15:00)
[2025-03-01] MEDS ORDERED: LEVE100S7 PEG (15:01)
[2025-03-01] MEDS ORDERED: METO25TA3 PEG (15:02)
[2025-03-01] MEDS ORDERED: MERO1VIA27 IV (15:02)
[2025-03-01] MEDS ORDERED: NAFC2VIA IM (15:04)
[2025-03-01] MEDS ORDERED: PANT-31 IVP (15:09)
[2025-03-01] MEDS ORDERED: [UNRECOGNIZED DRUG - CODE] TP (15:10)
[2025-03-01] MEDS ORDERED: LORA2VIA33 IV (15:12)
[2025-03-01] MEDS: FUROSEMIDE 20 MG/2 ML VIAL IVP SCH (17:43)
[2025-03-07] MEDS ORDERED: NAFCILLIN SODIUM 2 GM in DEXTROSE 5%-WATER 100 ML IV SCH (18:00)
[2025-03-08 18:06] LABS: GLUCOMETER DEV NAME(LOC) 5N.1D; GLUCOSE,POINT OF CARE 178 MG/DL (70-110)
[2025-03-08 18:06] LABS: GLUCOMETER DEV NAME(LOC) 5N.1D; GLUCOSE,POINT OF CARE 194 MG/DL (70-110)
== END 2025-03-01 22:37 | DRG 4 ==
LOC: EMS 03:13 → EDH 05:47 → ICU 09:40 → 5S 02-28 15:28
PROVIDERS: ADMIT Internal Medicine; ATTEND Internal Medicine
PROC: 5A1955Z Respiratory Ventilation, Greater than 96 Consecutive Hours (ICD-10-PCS; principal; 2025-01-19)
PROC: 0BH17EZ Insertion of Endotracheal Airway into Trachea, Via Natural or Artificial Opening (ICD-10-PCS; 2025-01-19)
PROC: 4A00X4Z Measurement of Central Nervous Electrical Activity, External Approach (ICD-10-PCS; 2025-01-21)
PROC: 0W993ZZ Drainage of Right Pleural Cavity, Percutaneous Approach (ICD-10-PCS; 2025-01-22)
PROC: 05HB33Z Insertion of Infusion Device into Right Basilic Vein, Percutaneous Approach (ICD-10-PCS; 2025-01-23)
PROC: 0B113F4 Bypass Trachea to Cutaneous with Tracheostomy Device, Percutaneous Approach (ICD-10-PCS; 2025-01-30)
PROC: 0B9J8ZZ Drainage of Left Lower Lung Lobe, Via Natural or Artificial Opening Endoscopic (ICD-10-PCS; 2025-01-30)
PROC: 4A00X4Z Measurement of Central Nervous Electrical Activity, External Approach (ICD-10-PCS; 2025-02-14)
PROC: 0DH63UZ Insertion of Feeding Device into Stomach, Percutaneous Approach (ICD-10-PCS; 2025-02-26)
DX: A41.01 Sepsis due to Methicillin susceptible Staphylococcus aureus (principal); J69.0 Pneumonitis due to inhalation of food and vomit; J96.00 Acute respiratory failure, unspecified whether with hypoxia or hypercapnia; N17.0 Acute kidney failure with tubular necrosis; I50.23 Acute on chronic systolic (congestive) heart failure; G93.6 Cerebral edema; R65.21 Severe sepsis with septic shock; I63.512 Cerebral infarction due to unspecified occlusion or stenosis of left middle cerebral artery; G93.40 Encephalopathy, unspecified; Z99.11 Dependence on respirator [ventilator] status; R47.01 Aphasia; J90 Pleural effusion, not elsewhere classified; J98.11 Atelectasis; I13.0 Hypertensive heart and chronic kidney disease with heart failure and stage 1 through stage 4 chronic kidney disease, or unspecified chronic kidney disease; I69.351 Hemiplegia and hemiparesis following cerebral infarction affecting right dominant side; J91.8 Pleural effusion in other conditions classified elsewhere; I47.20 Ventricular tachycardia, unspecified; I42.9 Cardiomyopathy, unspecified; I48.92 Unspecified atrial flutter; R56.9 Unspecified convulsions; I65.23 Occlusion and stenosis of bilateral carotid arteries; E11.22 Type 2 diabetes mellitus with diabetic chronic kidney disease; G47.00 Insomnia, unspecified; N18.9 Chronic kidney disease, unspecified; R13.10 Dysphagia, unspecified; E78.5 Hyperlipidemia, unspecified; I48.91 Unspecified atrial fibrillation; L89.159 Pressure ulcer of sacral region, unspecified stage; I69.320 Aphasia following cerebral infarction; E83.39 Other disorders of phosphorus metabolism; Z66 Do not resuscitate; Z95.810 Presence of automatic (implantable) cardiac defibrillator; S30.0XXA Contusion of lower back and pelvis, initial encounter; I34.0 Nonrheumatic mitral (valve) insufficiency; B96.89 Other specified bacterial agents as the cause of diseases classified elsewhere; D63.1 Anemia in chronic kidney disease; F32.A Depression, unspecified; G93.89 Other specified disorders of brain; Z79.4 Long term (current) use of insulin; Z79.82 Long term (current) use of aspirin; Z79.84 Long term (current) use of oral hypoglycemic drugs; Z82.49 Family history of ischemic heart disease and other diseases of the circulatory system; Z83.3 Family history of diabetes mellitus; X58.XXXA Exposure to other specified factors, initial encounter; Y93.89 Activity, other specified; Y92.89 Other specified places as the place of occurrence of the external cause; Y99.8 Other external cause status
CPT/HCPCS: 31500; 31624; 32555; 36245; 36569; 36600; 70450; 70496; 70498; 70551; 71045; 71250; 74018; 74176; 76705; 76770; 76937; 76942; 78226; 80048; 80053; 80061; 80202; 80307; 81001; 81002; 82040; 82043; 82465; 82550; 82570; 82805; 82945; 82948; 82962; 83615; 83735; 83986; 84100; 84132; 84156; 84157; 84300; 84484; 84540; 85025; 85610; 85730; 86160; 86850; 86900; 86901; 87015; 87040; 87070; 87075; 87077; 87081; 87086; 87101; 87186; 87205; 87206; 87324; 87449; 88108; 88305; 89051; 93005; 93306; 93312; 94002; 94003; 94640; 95816; 96361; 96365; 96367; 96368; 99291; A9537; G0238; G0480; J0282; J0690; J0712; J0878; J1335; J1644; J1940; J1956; J2001; J2060; J2185; J2270; J2470; J2543; J2704; J2765; J3010; J3370; J3475; J3480; J3490; J7040; J7050; J7060; P9046; 36415-L1; 36415-TC; J7613